=== PATIENT | female | born 1970 | race Caucasian/White ===

== ENCOUNTER → 2017-10-29 11:15 | Outpatient (REF) | payer MEDICAID, SELFPAY ==
--- NOTE | 2017-10-29 10:50 | PAPFT_PTH ---
PATIENT: Venessa Pascual LOC: [facility] U#:[id number] AGE/SX: 55/F ROOM: RE10/29/[address]: Atiya Ledesma NP : 1970 BED: DIS: SPEC #: [id number] RECD: 10/29/17 12:56 STATUS: DANYA ROSE #: [id number] SUBHA: 10/29/17 10:[address]: Atiya Ledesma NP DEPT: [facility] Cytology RECD BY: Ngoc Roe ENTERED: 10/29/17 12:56 SP TYPE: PAPFT OTHR DR: Jovanna Ellis Tissues: 1 - CX/ENDOCX FOR PAP SMEARS Procedures: PAP THIN PREP/UVM Screening HPV DNA PROBE Comments: [id number] (CHLAMYDIA GC)
[2017-11-01 15:26] LABS: Chlamydia Result Negative; GC Result Negative; Specimen Description SEE COMMENTS
== END ==
LOC: LBN 11:15
PROVIDERS: PCP Nurse Practitioner Family; Visit Provider Nurse Practitioner Women's Health
DX: Z11.3 Encounter for screening for infections with a predominantly sexual mode of transmission (principal); Z12.4 Encounter for screening for malignant neoplasm of cervix; Z11.51 Encounter for screening for human papillomavirus (HPV)
CPT/HCPCS: 87491; 87591; 88142; 87624

== ENCOUNTER → 2017-10-29 11:23 | Outpatient (CLI) | payer MEDICAID, SELFPAY ==
[2017-10-29 15:05] LABS: Glucose 107 mg/dL (70-100); Hemoglobin A1C 5.7 % (4.5-6.2); TSH (W/Ref FT4) 3.94 uIU/mL (0.358-3.74)
[2017-10-29 15:29] LABS: FREE T4 0.84 ng/dL (0.76-1.46)
[2017-10-29 15:58] LABS: Cholesterol 156 mg/dL (50-200); HDL Cholesterol 44 mg/dL (40-60); LDL CHOLESTEROL 97 mg/dL (<100); Triglyceride 120 mg/dL (30-150)
== END ==
PROVIDERS: PCP Nurse Practitioner Family; Visit Provider Nurse Practitioner Women's Health
DX: N93.9 Abnormal uterine and vaginal bleeding, unspecified (principal); R73.03 Prediabetes; Z13.220 Encounter for screening for lipoid disorders; Z11.3 Encounter for screening for infections with a predominantly sexual mode of transmission; Z12.4 Encounter for screening for malignant neoplasm of cervix; Z11.51 Encounter for screening for human papillomavirus (HPV)
CPT/HCPCS: 36415; 80061; 82947; 83721; 87491; 87591; 88142; 83036; 84439; 84443; 87624

== ENCOUNTER 2017-11-18 02:07 | Outpatient (CLI) | payer MEDICAID, SELFPAY ==
--- NOTE | 2017-11-18 12:59 | DI.US_ITS ---
SYMPTOMS/DIAGNOSIS: MENORRHAGIA, R92.0, PELVIC PLAIN, R10.2, RIGHT-SIDED PAIN, HEAVY BLEEDING, ? FIBROID PELVIC ULTRASOUND: There are no prior comparison exams. Transabdominal and transvaginal exams were performed. The uterus measures 10.8 x 4.7 x 6.6 cm. No fibroids are visualized. The endometrial stripe appears thickened at 16 mm. No focal endometrial abnormality is seen. The endometrium appears homogeneous. The ovaries are normal in size and appearance. No cysts or masses are seen. The kidneys are grossly normal. IMPRESSION: Mildly enlarged uterus without a discrete fibroid. Thickened endometrium without focal abnormality.
== END 2017-11-18 02:27 ==
PROVIDERS: PCP Family Medicine; Visit Provider Nurse Practitioner Women's Health
DX: N92.0 Excessive and frequent menstruation with regular cycle (principal); N85.2 Hypertrophy of uterus; R10.2 Pelvic and perineal pain; R93.8 Abnormal findings on diagnostic imaging of other specified body structures
CPT/HCPCS: 76830; 76856

== ENCOUNTER 2017-12-01 01:18 | Outpatient (CLI) | payer MEDICAID, SELFPAY ==
--- NOTE | 2017-12-01 12:57 | DI.MAMMO_ITS ---
SYMPTOMS/DIAGNOSIS: SCREENING, Z12.31 MAMMOGRAM: Mammograms were interpreted according to the usual protocol including computer analysis with CAD system, tomosynthesis and C view imaging. The breasts are of moderate density. There is a markedly asymmetric appearance of the breasts with vaguely mass-like/nodular large radiodensities in the upper outer quadrant of the right breast as compared to the left. These findings may represent asymmetric fibroglandular tissue or old scarring or hematoma, but the possibility of malignancy is not excluded. Additional evaluation with compression views of the right breast and right breast ultrasound recommended. Additionally, there is an incompletely visualized nodule projected in the medial portion of the left breast on CC view and spot compression views and breast ultrasound are recommended for further evaluation of this finding. CONCLUSION: Additional mammographic views of both breasts and bilateral breast ultrasounds requested as described above. Category 0, breast density category C. MQSA ASSESSMENT OF FINDINGS: Incomplete: Needs additional imaging evaluation. Category 0. Patient will receive a letter notifying them of these results. Bi-RADS category C. The breasts are heterogeneously dense, which may obscure small masses.
== END 2017-12-01 01:38 ==
PROVIDERS: PCP Family Medicine; Visit Provider Nurse Practitioner Women's Health
DX: Z12.31 Encounter for screening mammogram for malignant neoplasm of breast (principal); R92.8 Other abnormal and inconclusive findings on diagnostic imaging of breast
CPT/HCPCS: 77063; 77067

== ENCOUNTER 2017-12-02 14:42 | Outpatient (REF) | payer MEDICAID, SELFPAY ==
--- NOTE | 2017-12-02 13:30 | CER_PTH ---
PATIENT: Venessa Pascual LOC: [facility]BN U#:[id number] AGE/SX: 47/F ROOM: RE12/02/[address]: Bijan Kinney MD : 1970 BED: DIS: 12/02/2017 SPEC #: [id number] RECD: 12/02/17 17:56 STATUS: DANYA REQ #: [id number] SUBHA: 12/02/17 13:[address]: Bijan Kinney DEPT: Surgical Specimen RECD BY: Ngoc Roe ENTERED: 12/02/17 17:58 SP TYPE: CER OTHR DR: Jose Diehl Tissues: 1 - CERVICAL BIOPSY 2 - ENDOCERVICAL BX/CURRETTE 3 - ENDOMETRIUM BX/CURRETTE Procedures: GROSS AND MICRO LEVEL 4 Comments: [id number]
== END 2017-12-02 15:02 ==
LOC: LBN 14:42
PROVIDERS: PCP Family Medicine; Visit Provider Obstetrics & Gynecology
DX: N85.00 Endometrial hyperplasia, unspecified (principal); N88.8 Other specified noninflammatory disorders of cervix uteri; N92.0 Excessive and frequent menstruation with regular cycle
CPT/HCPCS: 88305

== ENCOUNTER 2017-12-15 01:00 | Outpatient (CLI) | payer MEDICAID, SELFPAY ==
--- NOTE | 2017-12-15 13:28 | DI.COMBO_ITS ---
SYMPTOMS/DIAGNOSIS: ADDITIONAL VIEWS OF THE LEFT BREAST AND LEFT BREAST ULTRASOUND: Additional images are interpreted according to the usual protocol including tomosynthesis and 2D imaging. Additional views of the left breast fail to show a persistent discrete mass. A left breast ultrasound was performed. The upper inner and upper outer quadrants of the left breast were evaluated in addition to the lower inner quadrants. No cystic or solid masses are seen sonographically. IMPRESSION: No evidence for malignancy. Yearly mammography is recommended. Category I. Breast density B. ADDITIONAL VIEWS OF THE RIGHT BREAST AND RIGHT BREAST ULTRASOUND: Additional images are interpreted according to the usual protocol including tomosynthesis and 2D imaging. Additional views of the right breast again show asymmetric densities in the upper outer quadrant of the right breast. No associated microcalcifications are seen. A right breast ultrasound was performed. The upper outer quadrant was evaluated sonographically. No definite cystic or solid mass is seen sonographically. There does appear to be dense breast tissue in the upper outer quadrant. IMPRESSION: A 3 month follow up right mammogram and ultrasound are requested for re-evaluation. This is the patient's baseline examination. Category 3. The findings were discussed with the patient on the date of the examination. MQSA ASSESSMENT OF FINDINGS: Probably benign. Three month follow up recommended. Category 3. Patient will receive a letter notifying them of these results. BI-RADS category B. There are scattered areas of fibroglandular density.
== END 2017-12-15 01:20 ==
PROVIDERS: PCP Family Medicine; Visit Provider Nurse Practitioner Women's Health
DX: Z12.31 Encounter for screening mammogram for malignant neoplasm of breast (principal); R92.8 Other abnormal and inconclusive findings on diagnostic imaging of breast; N60.81 Other benign mammary dysplasias of right breast
CPT/HCPCS: 76642; 77063; 77067

== ENCOUNTER 2017-12-30 13:27 | Outpatient (CLI) | payer MEDICAID, SELFPAY ==
[2017-12-30 15:27] LABS: FREE T4 0.79 ng/dL (0.76-1.46); TSH 4.87 uIU/mL (0.358-3.74)
[2017-12-31 10:44] LABS: FSH 11.6 mIU/ml; LH 20.3 mIU/ml
== END 2017-12-30 13:47 ==
PROVIDERS: PCP Family Medicine; Visit Provider Obstetrics & Gynecology
DX: E03.9 Hypothyroidism, unspecified (principal)
CPT/HCPCS: 36415; 83001; 83002; 84439; 84443

== ENCOUNTER 2018-03-14 13:02 | Outpatient (CLI) | payer MEDICAID, SELFPAY ==
[2018-03-14 14:00] LABS: HCT 37.2 % (36.0-46.0); HGB 12.1 g/dL (12.0-15.5); Mean Corp. HGB Concentration 32.5 g/dL (32.0-36.0); Mean Corpuscular Hemoglobin 28.7 pg (27.0-33.0); Mean Corpuscular Volume 88.4 fL (80-95); Mean Platelet Volume 9.5 fL (8.0-11.0); Platelet Count 338 x1000/uL (130-400); RBC 4.21 m/cumm (4.00-5.20); RBC Distribution Width 14.2 % (11.7-14.6); White Blood Cell Count 6.21 k/cumm (4.4-10.8)
[2018-03-14 14:39] LABS: TSH (W/Ref FT4) 1.88 uIU/mL (0.358-3.74)
[2018-03-14 14:50] LABS: HCG Quant, Pregnancy < 1 mIU/mL (1-3)
== END 2018-03-14 13:22 ==
PROVIDERS: Obstetrics & Gynecology; PCP Family Medicine; Visit Provider Nurse Practitioner Family
DX: E03.9 Hypothyroidism, unspecified (principal); N94.6 Dysmenorrhea, unspecified; N92.0 Excessive and frequent menstruation with regular cycle; Z01.818 Encounter for other preprocedural examination
CPT/HCPCS: 36415; 85027; 86850; 86900; 86901; 84443; 84702

== ENCOUNTER 2018-03-16 11:33 | Inpatient (IN) | payer MEDICAID, SELFPAY ==
[2018-03-16] VITALS (25 sets, daily range): BP systolic 81–132; BP diastolic 41–83; PULSE 59–79; RESP 14–24; TEMP 36.6–36.8; O2SAT 90–98
[2018-03-16] MEDS: Lactated Ringers 1,000 ML 125 ML IV ×5 (07:07→21:31)
--- NOTE | 2018-03-16 09:54 | UTER_PTH ---
PATIENT: Venessa Pascual LOC: U#:[id number] AGE/SX: 48/F ROOM: RE03/16/[address]: Emily Harvey MD : 1970 BED: A DIS: 03/17/2018 SPEC #: [id number] RECD: 03/16/18 12:58 STATUS: DANYA REQ #: [id number] SUBHA: 03/16/18 09:[address]: Emily Harvey DEPT: Surgical Specimen RECD BY: Ngoc Roe ENTERED: 03/16/18 12:59 SP TYPE: UTER OTHR DR: Jose Diehl Tissues: 1 - UTERUS W OR W/O OVARIES(NOT TUMOR/PROLAPSE) 2 - FALLOPIAN TUBE (OTHER) Procedures: GROSS AND MICRO LEVEL 5 Comments: [id number]
[2018-03-16] MEDS: Bupivacaine 0.25% Pres-Free 30 ML VIAL (11:01)
[2018-03-16] MEDS: Scopolamine 1 MG/3 DAYS PATCH TD (11:10)
[2018-03-16] MEDS: fentaNYL 100 MCG/2 ML VIAL IVP ×3 (12:24→13:00)
[2018-03-16] MEDS: oxyCODONE 5 mg/Acetaminophen 325 mg TAB PO ×4 (14:06→23:47)
--- NOTE | 2018-03-16 15:48 | NUR.NOTE ---
Nursing Note: 03/16/18 @ 1325 Admited from PACU to room 225 via stretcher. LS dim w few coarse rhonchi. States is a smoker and has a congested frequent cough at this time. Not raising any sputum at this time. Is enc to splint ABD incision for comfort. A&Ox3. 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 States pain is 8/10. ABD HYST incision is covered w nonstick dressing, CDI. Cameron to gravity w pink, hematuria, sediment urine in bag. Not emptied at this time. SCD's placed. Teaching for pain control and sipping on gingerale. Denies nausea. Will continue to monitor pain but was just medicated. Oriented to room and call escudero system. LR@125cc/hr into site WNL's. upper bed rails in use. Spouse present and comforting to patient. Patient able to repos self w assist. PP+. Limited feeling & movement in LE from spinal but able to wiggle toes and feet well.
[2018-03-16] MEDS: Ketorolac 30 MG/ML VIAL IVP ×2 (17:16→23:21)
[2018-03-16] MEDS: Normal Saline Flush 10 ML SYR IV ×2 (17:16→23:24)
--- NOTE | 2018-03-16 19:40 | ROE_ITS ---
DATE OF PROCEDURE: March 16, 2018 PREOPERATIVE DIAGNOSIS: Menorrhagia, pelvic pain. POSTOPERATIVE DIAGNOSIS: Menorrhagia, pelvic pain. PROCEDURE: Laparoscopic total hysterectomy, bilateral salpingectomy, converted to laparotomy, total abdominal hysterectomy, and bilateral salpingectomy. SURGEON: Emily Harvey M.D. CONSTRUCTION EQUIPMENT OVERHAULER: Carie Schreiber M.D. ANESTHESIA: General plus intrathecal. ESTIMATED BLOOD LOSS: 300 cc FLUIDS: Per Anesthesia records. FINDINGS: There were two adhesions of the omentum to the anterior abdominal wall and adhesion of the bladder to the lower uterine segment. There was a subserosal fibroid at the fundus of the uterus. Both ovaries were normal. SPECIMENS: Uterus, cervix, bilateral tubes. PROCEDURE: The patient was taken to the Operating Room where she was properly identified. She was t hen placed on the operating table in dorsal supine position and general anesthesia was induced withou t difficulty. She was then placed in the dorsal lithotomy position with both arms tucked and prepped and draped in a normal sterile fashion. A formal time-out procedure was then performed confirming p atient and procedure. A Cameron catheter was placed and then a bivalve speculum was placed in the vagina to visualize the cer vix. The cervix was visualized and grabbed on the anterior lip with a single-tooth tenaculum. A #0- PDS was stitched at the anterior lip of the cervix and held. The VCare was then advanced into the ut erine cavity. It had been sounded to 11 prior. The balloon was filled and the VCare caps were advan jean-claude circumferentially around the cervix and locked. Placement was reinspected and the cervix felt en tirely covered. Attention was then turned to the laparoscopic portion of the procedure. An infraumbilical injection of half-strength Marcaine was made. A 5-mm subcuticular infraumbilical incision was made. The Veres s was advanced into the peritoneal cavity without difficulty. The abdomen was then insufflated with CO2 gas. Once insufflated the 5-mm port was advanced under direct visualization after the Veress nee dle was removed. Two lower 5-mm ports were then placed, one in the right lower quadrant and one in t he left lower quadrant by first injecting the area with quarter-strength Marcaine, making a 5-mm subc uticular incision, and advancing the ports under direct visualization. A thorough inspection of the pelvis ensued with the above findings. After identification of the bilateral ureters along the course of the pelvic sidewall, the TLH was be gun at the left round ligament which was cauterized x3 and cut. The bladder flap was created both sh arply and bluntly across the anterior lower uterine segment. Attention was then turned to the right round ligament. Again, it was cauterized and cut. It was at this time that Anesthesia asked for the abdomen to be desufflated because the patient was not maintaining her oxygen saturation. She was gi charles albuterol and had some improvement back to baseline. However, once the abdomen was reinsufflated and Trendelenburg position was assumed, the patient again could not maintain her O2 saturations. An esthesia advised at the time that it would be best to do her case open because she was not tolerating the laparoscopic procedure. All the ports were removed and hemostasis was confirmed. The abdomen w as desufflated of CO2 gas. The patient was placed on the table in a dorsal supine position. She was reprepped and draped in a s terile fashion. A Pfannenstiel incision was made approximately 2 cm above the symphysis pubis along the old section scar and carried down to the underlying fascia. The fascia was nicked in th e midline and extended bilaterally sharply. The inferior aspect of the fascia was then grasped bilat erally with the Rafat clamps, tented up, and the rectus muscles dissected off sharply. Attention was then turned to the superior aspect. Again, in a similar fashion it was grasped bilater ally with the Rafat clamped, tented up, and the rectus muscles dissected off sharply. The rectus mu scles were in the midline. The peritoneum was entered bluntly. This was extended superior ly and then inferiorly with good visualization of the bladder. The bowel was packed away with four m oist laparotomy sponges. The O'Lukasz-O'Alarcon retractor was then placed. The bladder blade was p laced without difficulty and the upper arm was used to hold the packed laparotomy back with good visu alization. The cornua regions of the uterus were grasped bilaterally with long Annita clamps. Attention was then turned to the remainder of the dissection of the bladder which was taken down in a series of sharp and blunt dissection with the Metzenbaum scissors. Attention was then turned to the uterine ovarian ligament on the left. A small window was made in the broad ligament. The ligament was cross clamped x2 with Annita clamps, cut, suture ligated with #0 Vicryl, and then free tied x1 wit h #0 Vicryl. The tube remained attached to the uterus. The broad ligament was taken down by a serie s of straight Rafat clamps, cut, and suture ligated with #0 Vicryl to the level of the uterine vesse ls which were skeletonized and cross clamped. Using the scalpel, the tissue was taken down and stitc hed with #0 Vicryl. In a similar fashion on the right, a window was made in the broad ligament. It was cross clamped x2 and cut. The ovary was free tied x1 and suture ligated x1. There was some bleeding from the surface of the IP ligament which was made hemostatic with a series of #2-0 Vicryl in a running locked fashio n. Once hemostasis was confirmed on the right ovary, the remainder of the right broad ligament was t aken down with a series of clamping with straight Rafat clamps, cutting, and suture ligating with #0 Vicryl to the level of the uterine vessels which were skeletonized and then cross clamped perpendicu lar to the uterus, cut, and suture ligated with #0 Vicryl. The remainder of the paracervical tissue was taken down with clamping with straight Rafat clamps, incising with the scalpel, and suture ligat ing with #0 Vicryl. With the bladder well away from the surgical field, curved Tonya clamps were pl aced at the cervicovaginal junction and the uterus and cervix were excised using the Bret scisso rs. Two Tonya stitches of #0 Vicryl were then placed on each of the apices and held and the remaind er of the vaginal cuff was closed with #0 Vicryl in a normal running locked fashion. The abdomen was copiously irrigated. All of the irrigant was removed. All of the pedicles were insp ected and found to be hemostatic. The laparotomy sponges were then removed. The retractor was remov ed. The peritoneum was closed with #2-0 Vicryl in a running fashion. The muscle and subfascial laye r was inspected and found to be hemostatic. The fascia was closed from each of the apices with #0-PD S. The subcuticular tissue was copiously irrigated, requiring a small amount of Bovie cautery to ach ieve hemostasis. This was reapproximated using #3-0 plain gut and the skin was closed with #4-0 Vicr yl on a Tim needle in a subcuticular fashion. Sponge, lap, needle, and instrument counts were correct x2.
[2018-03-16] MEDS: traZODone 50 MG TAB PO (21:38)
[2018-03-17] VITALS (7 sets, daily range): BP systolic 109–114; BP diastolic 58–75; PULSE 66–73; RESP 14–20; TEMP 37.1–38.1; O2SAT 95–99
[2018-03-17] MEDS: oxyCODONE 5 mg/Acetaminophen 325 mg TAB PO ×4 (03:42→16:11)
[2018-03-17] MEDS: Lactated Ringers 1,000 ML 125 ML IV ×2 (04:45→12:31)
[2018-03-17] MEDS: Ketorolac 30 MG/ML VIAL IVP ×2 (06:14→12:27)
[2018-03-17] MEDS: Levothyroxine 50 MCG TAB PO (06:14)
[2018-03-17] MEDS: Sertraline 50 MG TAB PO (07:45)
--- NOTE | 2018-03-17 13:11 | PGE_ITS ---
Date of Service Date of service: 03/17/18 Time of Service: 08:06 Assessment and Plan (1) Dysmenorrhea: Current visit: Yes Status: Acute pod #1 RAJ Bilateral salpingectomy stable reseen at 12 noon ready to D/C Subjective Patient reports: tolerating a regular diet, voiding w/o difficulty, flatus and afebrile Interval history since last seen: doing well feels well pain well controlled using percocet Exam Narrative Exam Narrative: pod#1 RAJ Const General: cooperative and healthy appearing Resp Effort & Inspection: normal respiratory effort Auscultation: clear to auscultation bilaterally Cardio Rate: regular rate Rhythm: regular rhythm GI Inspection: normal to inspection Other: incision C/D/I Objective Objective Clinical Data: Vital Signs Temperature 38.1 C H 03/17/18 07:40 Temperature Source Tympanic 03/17/18 07:40 Pulse 66 03/17/18 07:40 Pulse Rhythm Regular 03/17/18 07:35 Respiratory Rate 18 03/17/18 07:40 Respiratory Effort Non-Labored 03/17/18 07:35 Respiratory Depth Normal 03/17/18 07:35 Respiratory Pattern Normal 03/17/18 07:35 Blood Pressure 109/74 03/17/18 07:40 Pulse Oximetry 99 03/17/18 07:40 Respiratory End-tidal CO2 33 03/16/18 12:40 Oxygen Delivery Method Room Air 03/17/18 07:40 Oxygen Flow Rate 0 03/17/18 07:40 Pain Level 5 03/17/18 12:27 Intake & Output 03/16/18 03/17/18 03/17/18 23:59 11:59 23:59 Intake Total 3045.416 / 4595.416 2040 / 3010.833 970.833 / 3010.833 Output Total 1300 / 1750 1800 / 1800 Balance 1745.416 / 2845.416 240 / 1210.833 970.833 / 1210.833 Intake: IV 2235.416 / 3785.416 960 / 1930.833 970.833 / 1930.833 Oral 810 / 810 1080 / 1080 Output: Urine 1300 / 1450 1800 / 1800 Other: Urine Color Light Dalila Yellow Brown [place] Urine Appearance Clear Clear Urine Odor Normal Comment Not emptied at thsi time Emesis Description None Voiding Methods Toilet Toilet
--- NOTE | 2018-03-17 15:04 | W.PM.DS.N ---
Date of service: 03/17/18 Time of Service: 15:05 DS: Diagnosis Discharge Diagnosis (1) Dysmenorrhea: Status: Acute Discharge Plan Disposition Patient Disposition: HOME Condition: Stable Discharge Details Reason For Visit: MENORRHAGIA S/P RAJ Admit Date/Time: 03/16/18 11:33 Admit Provider: Emily Harvey Attending Provider: Emily Harvey [facility] Hospital Course: OR 03/16/18 Laparoscopy converted to Laparotomy RAJ Bilateral salpingectomy routine post op course d/c home POD #1 Home Meds and New Rx's Prescriptions: New trazodone 50 mg Tablet 50 mg PO HS PRN PRN (Reason: Allergy Symptoms) Qty: 30 RF: 0 acetaminophen [Mapap Extra Strength] 500 mg Tablet 500 mg PO Q4H PRN PRNQty: 30 RF: 0 oxycodone-acetaminophen 5-325 mg Tablet 1 tab PO Q4H PRN PRNQty: 10 RF: 0 levothyroxine 50 mcg Tablet 50 mcg PO DAILY@0600 Qty: 30 RF: 0 sertraline 50 mg Tablet 50 mg PO DAILY Qty: 30 RF: 0 Continued trazodone 50 mg tablet 50 mg PO HS RF: 0 levothyroxine [Levoxyl] 50 mcg tablet 50 mcg PO DAILY Qty: 60 RF: 1 sertraline 50 mg Tablet 50 mg PO DAILY RF: 0 Discharge Instructions Instructions: Menorrhagia (GEN) Additional Instructions: Postoperative Instructions Outpatient Gynecology - Dr. George PLEASE LIMIT YOUR ACTIVITY Limit stair climbing for your first week at home. You may increase your activity and stair climbing after that, gradually, as tolerated. YOU MAY Shower and wash your hair at any time and tub baths with assistance. If you have an abdominal incision, you may also wash your incision with warm water and soap, dry well. You may also use peroxide to clean your incision. AFTER YOUR FIRST WEEK AT HOME You may do light housekeeping, leave the house, and ride in a car. You may drive a car yourself for short trips after (2) weeks. To help with your recovery, you should resume daily activities as soon as you feel able. You will probably be able to return to work 4-6 weeks after your surgery. AVOID Vigorous exercise or heavy lifting for (6) six weeks after your surgery. Please abstain from intercourse, douching, and using tampons for (4) four weeks or until your physician indicates that this is acceptable. YOU MAY HAVE Some vaginal bleeding and/or discharge for (2) two to (3) three weeks after your surgery. Use pads only. Please contact the office if you have any sudden, heavy vaginal bleeding. TO AVOID CONSTIPATION You may use over the counter products, for example; Metamucil, Fibercon, Colace, or Milk of Magnesia. Also, eat a well balanced, high fiber diet and drink plenty of liquids. You may also use a girdle or abdominal support, if you wish for comfort, but it is not required. CALL THE OFFICE If you have any signs of infection, such as; a temperature greater than 100.4F, general ill feelings, redness or discharge at the site of the incision, or foul smelling vaginal discharge. If you experience any new symptoms, such as; nausea, vomiting, abdominal swelling, or severe pain. As soon as you are able to, schedule a follow-up appointment for (4) four to (6) six weeks from surgery. Please make the appointments with the physician that performed your surgery. MEDICATIONS You may use ibuprofen 600 mg every (6) six hours for pain- Advil, Motrin IB, and Ibuprofen that you buy without a prescription are the same medicine as prescribed Motrin or Ibuprofen. The kind you buy without prescription are 200mg so you may take 3 of these at a time if you did not receive a prescription for Ibuprofen. Please call the office with any questions or concerns at [phone]. Stand Alone Forms: Nursing Discharge Form Referrals: Emily Harvey [ [facility] STAFF PHYSICIAN] - 04/05/18 10:00 am Activity:: Activity as Tolerated Equipment/Supplies:: No Equipment Needed Diet:: As Tolerated Discharge Orders Discharge Orders: Discharge Order (Routine); Ordered 03/17/18 Ordered By: Emily Harvey DS: Summary Time spent discussing smoking cessation with patient: more than 10 minutes Exam Chest Chest: normal inspection of the chest Resp Effort & Inspection: normal respiratory effort Cardio Palpation: normal PMI Rate: regular rate Rhythm: regular rhythm GI Inspection: normal to inspection Other: incision c/d/i DS: Data Vitals/I&O Vitals and I&O: Vital Signs Temperature 37.9 C H 03/17/18 13:25 Temperature Source Tympanic 03/17/18 13:25 Pulse 73 03/17/18 13:25 Pulse Rhythm Regular 03/17/18 07:35 Respiratory Rate 18 03/17/18 13:25 Respiratory Effort Non-Labored 03/17/18 07:35 Respiratory Depth Normal 03/17/18 07:35 Respiratory Pattern Normal 03/17/18 07:35 Blood Pressure 114/69 03/17/18 13:25 Pulse Oximetry 95 03/17/18 13:25 Respiratory End-tidal CO2 33 03/16/18 12:40 Oxygen Delivery Method Room Air 03/17/18 13:25 Oxygen Flow Rate 0 03/17/18 13:25 Pain Level 5 03/17/18 12:27 Intake & Output 03/16/18 03/17/18 03/17/18 23:59 11:59 23:59 Intake Total 3045.416 / 4595.416 2040 / 4089.583 2049.583 / 4089.583 Output Total 1300 / 1750 1800 / 1800 Balance 1745.416 / 2845.416 240 / 2289.583 2049.583 / 2289.583 Intake: IV 2235.416 / 3785.416 960 / 2049.583 1089.583 / 2049.583 Oral 810 / 810 1080 / 2040 960 / 2040 Output: Urine 1300 / 1450 1800 / 1800 Other: Urine Color Light Dalila Yellow Brown [place] Urine Appearance Clear Clear Urine Odor Normal Comment Not emptied at thsi time Emesis Description None Voiding Methods Toilet Toilet [facility] Medical History 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) Atypical squamous cells of undetermined significance (ASCUS) on Papanicolaou smear of cervix (Acute 11/21/14) Depression Dysmenorrhea Menorrhagia Pre-diabetes Surgical History section Ligation of fallopian tube Tonsillectomy and adenoidectomy Family History Mother CHF (congestive heart failure) COPD (chronic obstructive pulmonary disease) Father Essential hypertension Sister PCOS (polycystic ovarian syndrome) Ovarian cancer Grandfather Essential hypertension Grandfather COPD (chronic obstructive pulmonary disease) Grandmother Cervical cancer Social History Smoking/Tobacco Use Status: Current every day alcohol intake: former substance use type: does not use History History 2 Para Hx # Term Pregnancies Multiple births Hx # Pregnancies Ectopic pregnancies AB induced Hx Number of Living Children AB spontaneous
--- NOTE | 2018-03-17 15:08 | DSE_ITS ---
Date of service: 03/17/18 Time of Service: 15:05 DS: Diagnosis Discharge Diagnosis (1) Dysmenorrhea: Status: Acute Discharge Plan Disposition Patient Disposition: HOME Condition: Stable Discharge Details Reason For Visit: MENORRHAGIA S/P RAJ Admit Date/Time: 03/16/18 11:33 Admit Provider: Emily Harvey Attending Provider: Emily Harvey [facility] Hospital Course: OR 03/16/18 Laparoscopy converted to Laparotomy RAJ Bilateral salpingectomy routine post op course d/c home POD #1 Home Meds and New Rx's Prescriptions: New trazodone 50 mg Tablet 50 mg PO HS PRN PRN (Reason: Allergy Symptoms) Qty: 30 RF: 0 acetaminophen [Mapap Extra Strength] 500 mg Tablet 500 mg PO Q4H PRN PRNQty: 30 RF: 0 oxycodone-acetaminophen 5-325 mg Tablet 1 tab PO Q4H PRN PRNQty: 10 RF: 0 levothyroxine 50 mcg Tablet 50 mcg PO DAILY@0600 Qty: 30 RF: 0 sertraline 50 mg Tablet 50 mg PO DAILY Qty: 30 RF: 0 Continued trazodone 50 mg tablet 50 mg PO HS RF: 0 levothyroxine [Levoxyl] 50 mcg tablet 50 mcg PO DAILY Qty: 60 RF: 1 sertraline 50 mg Tablet 50 mg PO DAILY RF: 0 Discharge Instructions Instructions: Menorrhagia (GEN) Additional Instructions: Postoperative Instructions Outpatient Gynecology - Dr. George PLEASE LIMIT YOUR ACTIVITY * Limit stair climbing for your first week at home. * You may increase your activity and stair climbing after that, gradually, as tolerated. YOU MAY * Shower and wash your hair at any time and tub baths with assistance. * If you have an abdominal incision, you may also wash your incision with warm water and soap, dry well. You may also use peroxide to clean your incision. AFTER YOUR FIRST WEEK AT HOME * You may do light housekeeping, leave the house, and ride in a car. * You may drive a car yourself for short trips after (2) weeks. * To help with your recovery, you should resume daily activities as soon as you feel able. * You will probably be able to return to work 4-6 weeks after your surgery. AVOID * Vigorous exercise or heavy lifting for (6) six weeks after your surgery. * Please abstain from intercourse, douching, and using tampons for (4) four weeks or until your physician indicates that this is acceptable. YOU MAY HAVE * Some vaginal bleeding and/or discharge for (2) two to (3) three weeks after your surgery. * Use pads only. * Please contact the office if you have any sudden, heavy vaginal bleeding. TO AVOID CONSTIPATION * You may use over the counter products, for example; Metamucil, Fibercon, Colace, or Milk of Magnesia. * Also, eat a well balanced, high fiber diet and drink plenty of liquids. * You may also use a girdle or abdominal support, if you wish for comfort, but it is not required. CALL THE OFFICE * If you have any signs of infection, such as; a temperature greater than 100.4F, general ill feelings, redness or discharge at the site of the incision, or foul smelling vaginal discharge. * If you experience any new symptoms, such as; nausea, vomiting, abdominal swelling, or severe pain. * As soon as you are able to, schedule a follow-up appointment for (4) four to (6) six weeks from surgery. * Please make the appointments with the physician that performed your surgery. MEDICATIONS * You may use ibuprofen 600 mg every (6) six hours for pain- Advil, Motrin IB, and Ibuprofen that you buy without a prescription are the same medicine as prescribed Motrin or Ibuprofen. The kind you buy without prescription are 200mg so you may take 3 of these at a time if you did not receive a prescription for Ibuprofen. Please call the office with any questions or concerns at [phone]. Stand Alone Forms: Nursing Discharge Form Referrals: Emily Harvey [ [facility] STAFF PHYSICIAN] - 04/05/18 10:00 am Activity:: Activity as Tolerated Equipment/Supplies:: No Equipment Needed Diet:: As Tolerated Discharge Orders Discharge Orders: Discharge Order (Routine); Ordered 03/17/18 Ordered By: Emily Harvey DS: Summary Time spent discussing smoking cessation with patient: more than 10 minutes Exam Chest Chest: normal inspection of the chest Resp Effort & Inspection: normal respiratory effort Cardio Palpation: normal PMI Rate: regular rate Rhythm: regular rhythm GI Inspection: normal to inspection Other: incision c/d/i DS: Data Vitals/I&O Vitals and I&O: Vital Signs Temperature 37.9 C H 03/17/18 13:25 Temperature Source Tympanic 03/17/18 13:25 Pulse 73 03/17/18 13:25 Pulse Rhythm Regular 03/17/18 07:35 Respiratory Rate 18 03/17/18 13:25 Respiratory Effort Non-Labored 03/17/18 07:35 Respiratory Depth Normal 03/17/18 07:35 Respiratory Pattern Normal 03/17/18 07:35 Blood Pressure 114/69 03/17/18 13:25 Pulse Oximetry 95 03/17/18 13:25 Respiratory End-tidal CO2 33 03/16/18 12:40 Oxygen Delivery Method Room Air 03/17/18 13:25 Oxygen Flow Rate 0 03/17/18 13:25 Pain Level 5 03/17/18 12:27 Intake & Output 03/16/18 03/17/18 03/17/18 23:59 11:59 23:59 Intake Total 3045.416 / 4595.416 2040 / 4089.583 2049.583 / 4089.583 Output Total 1300 / 1750 1800 / 1800 Balance 1745.416 / 2845.416 240 / 2289.583 2049.583 / 2289.583 Intake: IV 2235.416 / 3785.416 960 / 2049.583 1089.583 / 2049.583 Oral 810 / 810 1080 / 2040 960 / 2040 Output: Urine 1300 / 1450 1800 / 1800 Other: Urine Color Light Dalila Yellow Brown [place] Urine Appearance Clear Clear Urine Odor Normal Comment Not emptied at thsi time Emesis Description None Voiding Methods Toilet Toilet [facility] Medical History 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) Atypical squamous cells of undetermined significance (ASCUS) on Papanicolaou smear of cervix (Acute 11/21/14) Depression Dysmenorrhea Menorrhagia Pre-diabetes Surgical History section Ligation of fallopian tube Tonsillectomy and adenoidectomy Family History Mother CHF (congestive heart failure) COPD (chronic obstructive pulmonary disease) Father Essential hypertension Sister PCOS (polycystic ovarian syndrome) Ovarian cancer Grandfather Essential hypertension Grandfather COPD (chronic obstructive pulmonary disease) Grandmother Cervical cancer Social History Smoking/Tobacco Use Status: Current every day alcohol intake: former substance use type: does not use History History 2 Para Hx # Term Pregnancies Multiple births Hx # Pregnancies Ectopic pregnancies AB induced Hx Number of Living Children AB spontaneous
--- NOTE | 2018-03-17 15:13 | W.PM.DS.N ---
DS: Diagnosis Discharge Diagnosis (1) Dysmenorrhea: Status: Acute Discharge Plan Disposition Patient Disposition: HOME Condition: Stable Discharge Details Reason For Visit: MENORRHAGIA S/P RAJ Admit Date/Time: 03/16/18 11:33 Admit Provider: Emily Harvey Attending Provider: Emily Harvey [facility]: [facility] 03/16/18 Laparoscopy converted to Laparotomy RAJ Bilateral salpingectomy routine post op course d/c home POD #1 Home Meds and New Rx's Prescriptions: New trazodone 50 mg Tablet 50 mg PO HS PRN PRN (Reason: Allergy Symptoms) Qty: 30 RF: 0 acetaminophen [Mapap Extra Strength] 500 mg Tablet 500 mg PO Q4H PRN PRNQty: 30 RF: 0 oxycodone-acetaminophen 5-325 mg Tablet 1 tab PO Q4H PRN PRNQty: 10 RF: 0 levothyroxine 50 mcg Tablet 50 mcg PO DAILY@0600 Qty: 30 RF: 0 sertraline 50 mg Tablet 50 mg PO DAILY Qty: 30 RF: 0 Continued trazodone 50 mg tablet 50 mg PO HS RF: 0 levothyroxine [Levoxyl] 50 mcg tablet 50 mcg PO DAILY Qty: 60 RF: 1 sertraline 50 mg Tablet 50 mg PO DAILY RF: 0 Discharge Instructions Instructions: Menorrhagia (GEN) Additional Instructions: Postoperative Instructions Outpatient Gynecology - Dr. George PLEASE LIMIT YOUR ACTIVITY Limit stair climbing for your first week at home. You may increase your activity and stair climbing after that, gradually, as tolerated. YOU MAY Shower and wash your hair at any time and tub baths with assistance. If you have an abdominal incision, you may also wash your incision with warm water and soap, dry well. You may also use peroxide to clean your incision. AFTER YOUR FIRST WEEK AT HOME You may do light housekeeping, leave the house, and ride in a car. You may drive a car yourself for short trips after (2) weeks. To help with your recovery, you should resume daily activities as soon as you feel able. You will probably be able to return to work 4-6 weeks after your surgery. AVOID Vigorous exercise or heavy lifting for (6) six weeks after your surgery. Please abstain from intercourse, douching, and using tampons for (4) four weeks or until your physician indicates that this is acceptable. YOU MAY HAVE Some vaginal bleeding and/or discharge for (2) two to (3) three weeks after your surgery. Use pads only. Please contact the office if you have any sudden, heavy vaginal bleeding. TO AVOID CONSTIPATION You may use over the counter products, for example; Metamucil, Fibercon, Colace, or Milk of Magnesia. Also, eat a well balanced, high fiber diet and drink plenty of liquids. You may also use a girdle or abdominal support, if you wish for comfort, but it is not required. CALL THE OFFICE If you have any signs of infection, such as; a temperature greater than 100.4F, general ill feelings, redness or discharge at the site of the incision, or foul smelling vaginal discharge. If you experience any new symptoms, such as; nausea, vomiting, abdominal swelling, or severe pain. As soon as you are able to, schedule a follow-up appointment for (4) four to (6) six weeks from surgery. Please make the appointments with the physician that performed your surgery. MEDICATIONS You may use ibuprofen 600 mg every (6) six hours for pain- Advil, Motrin IB, and Ibuprofen that you buy without a prescription are the same medicine as prescribed Motrin or Ibuprofen. The kind you buy without prescription are 200mg so you may take 3 of these at a time if you did not receive a prescription for Ibuprofen. Please call the office with any questions or concerns at [phone]. Stand Alone Forms: Nursing Discharge Form Referrals: Emily Harvey [ [facility] STAFF PHYSICIAN] - 04/05/18 10:00 am Activity:: Activity as Tolerated Equipment/Supplies:: No Equipment Needed Diet:: As Tolerated Discharge Orders Discharge Orders: Discharge Order (Routine); Ordered 03/17/18 Ordered By: Emily Harvey DS: Data Vitals/I&O Vitals and I&O: Vital Signs Temperature 37.9 C H 03/17/18 13:25 Temperature Source Tympanic 03/17/18 13:25 Pulse 73 03/17/18 13:25 Pulse Rhythm Regular 03/17/18 07:35 Respiratory Rate 18 03/17/18 13:25 Respiratory Effort Non-Labored 03/17/18 07:35 Respiratory Depth Normal 03/17/18 07:35 Respiratory Pattern Normal 03/17/18 07:35 Blood Pressure 114/69 03/17/18 13:25 Pulse Oximetry 95 03/17/18 13:25 Respiratory End-tidal CO2 33 03/16/18 12:40 Oxygen Delivery Method Room Air 03/17/18 13:25 Oxygen Flow Rate 0 03/17/18 13:25 Pain Level 5 03/17/18 12:27 Intake & Output 03/16/18 03/17/18 03/17/18 23:59 11:59 23:59 Intake Total 3045.416 / 4595.416 2040 / 4089.583 2049.583 / 4089.583 Output Total 1300 / 1750 1800 / 1800 Balance 1745.416 / 2845.416 240 / 2289.583 2049.583 / 2289.583 Intake: IV 2235.416 / 3785.416 960 / 2049.583 1089.583 / 2049.583 Oral 810 / 810 1080 / 2040 960 / 2040 Output: Urine 1300 / 1450 1800 / 1800 Other: Urine Color Light Dalila Yellow Brown [place] Urine Appearance Clear Clear Urine Odor Normal Comment Not emptied at thsi time Emesis Description None Voiding Methods Toilet Toilet [facility] Medical History 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) Atypical squamous cells of undetermined significance (ASCUS) on Papanicolaou smear of cervix (Acute 11/21/14) Depression Dysmenorrhea Menorrhagia Pre-diabetes Surgical History section Ligation of fallopian tube Tonsillectomy and adenoidectomy Family History Mother CHF (congestive heart failure) COPD (chronic obstructive pulmonary disease) Father Essential hypertension Sister PCOS (polycystic ovarian syndrome) Ovarian cancer Grandfather Essential hypertension Grandfather COPD (chronic obstructive pulmonary disease) Grandmother Cervical cancer Social History Smoking/Tobacco Use Status: Current every day alcohol intake: former substance use type: does not use History History 2 Para Hx # Term Pregnancies Multiple births Hx # Pregnancies Ectopic pregnancies AB induced Hx Number of Living Children AB spontaneous
--- NOTE | 2018-03-17 15:16 | DSE_ITS ---
DS: Diagnosis Discharge Diagnosis (1) Dysmenorrhea: Status: Acute Discharge Plan Disposition Patient Disposition: HOME Condition: Stable Discharge Details Reason For Visit: MENORRHAGIA S/P RAJ Admit Date/Time: 03/16/18 11:33 Admit Provider: Emily Harvey Attending Provider: Emily Harvey [facility] Course: OR 03/16/18 Laparoscopy converted to Laparotomy RAJ Bilateral salpingectomy routine post op course d/c home POD #1 Home Meds and New Rx's Prescriptions: New trazodone 50 mg Tablet 50 mg PO HS PRN PRN (Reason: Allergy Symptoms) Qty: 30 RF: 0 acetaminophen [Mapap Extra Strength] 500 mg Tablet 500 mg PO Q4H PRN PRNQty: 30 RF: 0 oxycodone-acetaminophen 5-325 mg Tablet 1 tab PO Q4H PRN PRNQty: 10 RF: 0 levothyroxine 50 mcg Tablet 50 mcg PO DAILY@0600 Qty: 30 RF: 0 sertraline 50 mg Tablet 50 mg PO DAILY Qty: 30 RF: 0 Continued trazodone 50 mg tablet 50 mg PO HS RF: 0 levothyroxine [Levoxyl] 50 mcg tablet 50 mcg PO DAILY Qty: 60 RF: 1 sertraline 50 mg Tablet 50 mg PO DAILY RF: 0 Discharge Instructions Instructions: Menorrhagia (GEN) Additional Instructions: Postoperative Instructions Outpatient Gynecology - Dr. George PLEASE LIMIT YOUR ACTIVITY * Limit stair climbing for your first week at home. * You may increase your activity and stair climbing after that, gradually, as tolerated. YOU MAY * Shower and wash your hair at any time and tub baths with assistance. * If you have an abdominal incision, you may also wash your incision with warm water and soap, dry well. You may also use peroxide to clean your incision. AFTER YOUR FIRST WEEK AT HOME * You may do light housekeeping, leave the house, and ride in a car. * You may drive a car yourself for short trips after (2) weeks. * To help with your recovery, you should resume daily activities as soon as you feel able. * You will probably be able to return to work 4-6 weeks after your surgery. AVOID * Vigorous exercise or heavy lifting for (6) six weeks after your surgery. * Please abstain from intercourse, douching, and using tampons for (4) four weeks or until your physician indicates that this is acceptable. YOU MAY HAVE * Some vaginal bleeding and/or discharge for (2) two to (3) three weeks after your surgery. * Use pads only. * Please contact the office if you have any sudden, heavy vaginal bleeding. TO AVOID CONSTIPATION * You may use over the counter products, for example; Metamucil, Fibercon, Colace, or Milk of Magnesia. * Also, eat a well balanced, high fiber diet and drink plenty of liquids. * You may also use a girdle or abdominal support, if you wish for comfort, but it is not required. CALL THE OFFICE * If you have any signs of infection, such as; a temperature greater than 100.4F, general ill feelings, redness or discharge at the site of the incision, or foul smelling vaginal discharge. * If you experience any new symptoms, such as; nausea, vomiting, abdominal swelling, or severe pain. * As soon as you are able to, schedule a follow-up appointment for (4) four to (6) six weeks from surgery. * Please make the appointments with the physician that performed your surgery. MEDICATIONS * You may use ibuprofen 600 mg every (6) six hours for pain- Advil, Motrin IB, and Ibuprofen that you buy without a prescription are the same medicine as prescribed Motrin or Ibuprofen. The kind you buy without prescription are 200mg so you may take 3 of these at a time if you did not receive a prescription for Ibuprofen. Please call the office with any questions or concerns at [phone]. Stand Alone Forms: Nursing Discharge Form Referrals: Emily Harvey [ [facility] STAFF PHYSICIAN] - 04/05/18 10:00 am Activity:: Activity as Tolerated Equipment/Supplies:: No Equipment Needed Diet:: As Tolerated Discharge Orders Discharge Orders: Discharge Order (Routine); Ordered 03/17/18 Ordered By: Emily Harvey DS: Data Vitals/I&O Vitals and I&O: Vital Signs Temperature 37.9 C H 03/17/18 13:25 Temperature Source Tympanic 03/17/18 13:25 Pulse 73 03/17/18 13:25 Pulse Rhythm Regular 03/17/18 07:35 Respiratory Rate 18 03/17/18 13:25 Respiratory Effort Non-Labored 03/17/18 07:35 Respiratory Depth Normal 03/17/18 07:35 Respiratory Pattern Normal 03/17/18 07:35 Blood Pressure 114/69 03/17/18 13:25 Pulse Oximetry 95 03/17/18 13:25 Respiratory End-tidal CO2 33 03/16/18 12:40 Oxygen Delivery Method Room Air 03/17/18 13:25 Oxygen Flow Rate 0 03/17/18 13:25 Pain Level 5 03/17/18 12:27 Intake & Output 03/16/18 03/17/18 03/17/18 23:59 11:59 23:59 Intake Total 3045.416 / 4595.416 2040 / 4089.583 2049.583 / 4089.583 Output Total 1300 / 1750 1800 / 1800 Balance 1745.416 / 2845.416 240 / 2289.583 2049.583 / 2289.583 Intake: IV 2235.416 / 3785.416 960 / 2049.583 1089.583 / 2049.583 Oral 810 / 810 1080 / 2040 960 / 2040 Output: Urine 1300 / 1450 1800 / 1800 Other: Urine Color Light Dalila Yellow [place] Urine Appearance Clear Clear Urine Odor Normal Comment Not emptied at thsi time Emesis Description None Voiding Methods Toilet Toilet [facility] Medical History 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) Atypical squamous cells of undetermined significance (ASCUS) on Papanicolaou smear of cervix (Acute 11/21/14) Depression Dysmenorrhea Menorrhagia Pre-diabetes Surgical History section Ligation of fallopian tube Tonsillectomy and adenoidectomy Family History Mother CHF (congestive heart failure) COPD (chronic obstructive pulmonary disease) Father Essential hypertension Sister PCOS (polycystic ovarian syndrome) Ovarian cancer Grandfather Essential hypertension Grandfather COPD (chronic obstructive pulmonary disease) Grandmother Cervical cancer Social History Smoking/Tobacco Use Status: Current every day alcohol intake: former substance use type: does not use History History 2 Para Hx # Term Pregnancies Multiple births Hx # Pregnancies Ectopic pregnancies AB induced Hx Number of Living Children AB spontaneous
--- NOTE | 2018-03-17 17:12 | INITIAL_ITS ---
Care Management Initial Assess REASON FOR HOSPITALIZATION:: Menorrhagia S/P RAJ PAST MEDICAL HISTORY/PAST SURGICAL HISTORY:: ASCUS, Depression, Dysmenorrhea, high risk HPV infection, Menorrhagia, pre-diabetes, section, ligation of fallopian tube, tonsillectomy and adenoidectomy PREVIOUS FUNCTIONAL STATUS/SOCIAL/FAMILY SUPPORTS:: Venessa resides in [place] with her significant other, Denny and her fourteen year old daughter. 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 CURRENT FUNCTIONAL STATUS:: Venessa is lying in bed when meets with her. Her significant other was at her bedside. She is forthcoming with information and pleasant in interaction. ADVANCE DIRECTIVES:: None on file. Has patient been provided with information about the portal?: Yes Did the patient sign up for the portal?: No CODE STATUS:: Full Code INSURANCE COVERAGE / FINANCIAL ISSUES:: Medicaid CURRENT HOME/COMMUNITY SERVICES/EQUIPMENT:: No current services or equipment. PRIMARY CARE PHYSICIAN:: Jose Diehl MD. POTENTIAL DISCHARGE NEEDS:: Follow up appointment with PCP. PATIENT/FAMILY EDUCATION NEEDS:: Review discharge instructions; discuss Ask Me Three. ANTICIPATED BARRIERS TO DISCHARGE:: None identified. TRANSPORTATION:: Venessa will transport via private vehicle with her significant other, Denny. PLAN:: Venessa will return home when ready per . She will follow up with Dr. Harvey and her plan of care as prescribed. Venessa will transport via private vehicle with her significant other, Denny.
--- NOTE | 2018-03-17 17:12 | PDOC.CMDIS ---
LACE Index Scoring Tool - Questions: Length of Stay (in days): 2 Acuity (Admit via E.D.?): No E.D. Visits: 0 - Answers: Total Score: 2 Risk of Readmission: Low Risk Care Management Discharge Reason for Hospitalization: Menorrhagia S/P RAJ Discharge Plan: Venessa will return home when ready per MD. She will follow up with Dr. Harvey and her plan of care as prescribed. Venessa will transport via private vehicle with her significant other, Denny. Patient/Family Education Needs: Review discharge instructions, discuss Ask Me Three.
== END 2018-03-17 16:11 | disposition home or self-care (01) | DRG 743 ==
LOC: MS 13:11
PROVIDERS: Admitting Provider Obstetrics & Gynecology; PCP Family Medicine; Visit Provider Obstetrics & Gynecology
PROC: 0UT94ZZ Resection of Uterus, Percutaneous Endoscopic Approach (ICD-10-PCS; CPT 58150; principal; 2018-03-16 07:30)
PROC: 0UT90ZZ Resection of Uterus, Open Approach (ICD-10-PCS; CPT 58150; 2018-03-16 07:30)
DX: N92.0 Excessive and frequent menstruation with regular cycle (principal); R10.2 Pelvic and perineal pain; N84.1 Polyp of cervix uteri; N70.11 Chronic salpingitis; D25.2 Subserosal leiomyoma of uterus; Z53.31 Laparoscopic surgical procedure converted to open procedure; R09.02 Hypoxemia; E03.9 Hypothyroidism, unspecified; F32.9 Major depressive disorder, single episode, unspecified
CPT/HCPCS: 58150; 99239; NC; 88307; J0690; J1100; J1885; J2250; J2405; J3010

== ENCOUNTER 2018-03-28 15:18 | Emergency (ER) | payer MEDICAID, SELFPAY ==
[2018-03-28 15:20] VITALS: BP 149/80; PULSE 86; RESP 14; TEMP 37; O2SAT 98
[2018-03-28 15:47] LABS: Bilirubin Negative (Negative); Blood Small (Negative); Clarity Clear; Glucose Negative (Negative); Ketones Negative (Negative); Leukocyte Esterase Trace (Negative); Nitrite Negative (Negative); Specific Gravity 1.015 (1.005-1.025); Urobilinogen 0.2 EU/dL (Up TO 0.2)
[2018-03-28] MEDS: Normal Saline 1,000 ML 1000 ML IV (16:08)
--- NOTE | 2018-03-28 16:08 | W.ED.GENAD ---
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 Clinical Impression: Colitis, Hepatic lesion, Pelvic pain Primary Care Provider: Jose Diehl ED Provider: Enrike Apple Home Meds and New Rx's Prescriptions: New metronidazole [Flagyl] 500 mg tablet 500 mg PO TID Qty: 21 RF: 0 ciprofloxacin HCl [Cipro] 500 mg tablet 500 mg PO BID Qty: 14 RF: 0 acetaminophen [Mapap Extra Strength] 500 MG tablet 1,000 mg PO Q6H 5 Days Qty: 60 RF: 0 ibuprofen [Motrin IB] 200 MG tablet 600 mg PO Q6H 5 Days Qty: 60 RF: 0 No Action trazodone 50 mg tablet 50 mg PO HS RF: 0 ibuprofen 600 mg tablet 600 mg PO QID PRN (Reason: pain) Qty: 45 RF: 1 levothyroxine [Levoxyl] 50 mcg tablet 50 mcg PO DAILY Qty: 60 RF: 1 ibuprofen 800 mg tablet 800 mg PO QID PRN (Reason: pain) Qty: 30 RF: 1 acetaminophen-codeine [Tylenol-Codeine #3] 300-30 mg tablet 1 tab PO Q6H PRN (Reason: pain) Qty: 20 RF: 0 amoxicillin-pot clavulanate [Augmentin] 875-125 mg tablet 1 tab PO BID 10 Days Qty: 20 RF: 0 sertraline 50 mg Tablet 50 mg PO DAILY RF: 0 acetaminophen [Mapap Extra Strength] 500 mg Tablet 500 mg PO Q4H PRN PRNQty: 30 RF: 0 Discharge Instructions Instructions: Colitis (ED) Additional Instructions: Please take Tylenol and Motrin for pain. I prescribed the maximum doses. Please take the Cipro and Flagyl as directed for the infection. If you notice any tendon or ligament pain please take stop taking the Cipro immediately. Do not drink any alcohol with the Flagyl. Please follow-up tomorrow with your obstetrics cobbler mckay. You do have a liver lesion noted on the CT scan. This needs to be closely followed with your primary care provider. If you notice any worsening of your symptoms, or any new symptoms such as vomiting, diarrhea, fever, chills, shortness of breath, chest pain, numbness, weakness, or fainting , please return immediately to the emergency department for reevaluation. Please follow up with your primary care provider as soon as possible for reassessment and reevaluation. As always, it was a pleasure participating in your medical care today. Referrals: Jose Diehl [Primary Care Provider] - Medical Decision Making This is a 48-year-old female who had a hysterectomy [address] Harvey the obstetrics cobbler mckay. Since then she has noticed continued pain in her pelvic region. She denies any vaginal discharge. She does have pain with urination and defecation. She denies any current fevers or chills but did have a mild fever 3 days ago. She did take 2 days of antibiotics/Augmentin but stopped this because it caused some diarrhea. Diarrhea has since improved. Physical exam demonstrates a mildly tender lower pelvic region, an incision site that is clean dry and intact except for slight opening on the left lateral component, questionable small seroma beneath the skin. We will get a CT scan per the request of the obstetrics cobbler mckay, perform a laboratory workup, treat the patient's pain and rehydrate. 6:[address] scan results have returned and demonstrate evidence of a few different findings including the very small 3 cm fluid collection in the postsurgical region, as well as a slightly enlarged left ovary, and some inflammatory changes in the anterior pelvis most likely postoperative changes. However the patient also demonstrates evidence of colitis on the CT scan. Although the patient did have diarrhea her diarrhea has completely resolved at this point, and she states that she only has formed stool. I doubt Clostridium difficile. If it is a C. difficile infection it is certainly very mild at this time. We will treat the patient with Cipro and Flagyl for suspected bacterial colitis. I did review the entire case, and the imaging and laboratory findings with Dr. Harvey the obstetrics cobbler mckay. She has no additional recommendations at this time except she does want close follow-up this week with the patient. The patient's pain is well controlled, vital signs are reassuring, the remainder of her laboratory workup is otherwise benign. Feel that the patient is a good candidate for discharge home and with no clinical symptomatology or CT findings of a severe acute abdominal pathology requiring surgery or hospitalization feel she can be discharged. I have extensively reviewed the treatment plan and discharge instructions with the patient and their family. I have addressed all patient concerns at this time. The patient and family was made aware of what symptoms to monitor for that would warrant a return to the emergency department. Discussed the plan with the patient and family, they demonstrate verbal understanding and agreement with our assessment and plan at this time. FINDINGS: Lower thorax: No acute findings. ABDOMEN: Liver: 8 mm low-attenuation nodule in the liver 45 Hounsfield units. Gallbladder and bile ducts: Normal. No calcified stones. No ductal dilation. Pancreas: Normal. No ductal dilation. Spleen: Normal. No splenomegaly. Adrenals: Normal. No mass. Kidneys and ureters: Normal. No hydronephrosis. Stomach and bowel: Low-attenuation bowel wall thickening is seen throughout the colon consistent with colitis. Differential diagnosis includes infectious and inflammatory etiologies.. Appendix: Normal appendix PELVIS: Bladder: Unremarkable as visualized. Reproductive: 2.6 cm cystic structure in the anterior left hemipelvis 14 Hounsfield units. This most likely represents left ovarian cyst if the ovaries were not resected with the uterus. Differential includes small abscess, hematoma, or seroma. ABDOMEN and PELVIS: Intraperitoneal space: Mild amount of free fluid in the pelvis Bones/joints: No acute fracture. No dislocation. Soft tissues: Anterior pelvic wall thickening 2.4 cm consistent with edema. 3 x 1 cm fluid collection in the subcutaneous fat anterior to the pelvis (4:65) Differential includes abscess, hematoma, seroma.. Inflammatory changes in the subcutaneous fat anterior to the pelvis may be secondary to recent surgery.. Inflammatory changes in the subcutaneous fat anteriorly in the abdomen consistent with recent surgery. Vasculature: Normal. No abdominal aortic aneurysm. Lymph nodes: Normal. No enlarged lymph nodes. IMPRESSION: 1. Anterior pelvic wall thickening 2.4 cm consistent with edema. 2. 3 x 1 cm fluid collection in the subcutaneous fat anterior to the pelvis (4:65) Differential includes abscess, hematoma, seroma.. 3. Inflammatory changes in the subcutaneous fat anterior to the pelvis may be secondary to recent surgery.. 4. Low-attenuation bowel wall thickening is seen throughout the colon consistent with colitis. Differential diagnosis includes infectious and inflammatory etiologies.. 5. 2.6 cm cystic structure in the anterior left hemipelvis 14 Hounsfield units. This most likely represents left ovarian cyst if the ovaries were not resected with the uterus. Differential includes small abscess, hematoma, or seroma. 6. Inflammatory changes in the subcutaneous fat anteriorly in the abdomen consistent with recent surgery. 7. 8 mm low-attenuation nodule in the liver 45 Hounsfield units. For low risk patients, recommend follow up CT or MRI in 6 months. For average risk patients, recommend multiphasic MRI in 6 months. For high risk patients, recommend multiphasic MRI and consider biopsy (core preferred). THIS REPORT CONTAINS FINDINGS THAT MAY BE CRITICAL TO PATIENT CARE. The findings were verbally communicated via telephone conference with ENRIKE APPLE at 5:29 PM EST on 03/28/2018. The findings were acknowledged and understood. Dictated and Authenticated by: Phuc Tolbert MD. HPI General Date/Time Provider Initiated Documentation: 03/28/18 15:25. HPI Narrative: This is a 48-year-old female with a past medical history of a hysterectomy performed by Dr. Harvey 12 days ago. Procedure went well, however since then she has had continued pain. 4 days ago she was started on Augmentin however this gave her diarrhea so she only took it for 2 days total. 3 days ago she had a mild fever of 100.1, but has had no fever since then. She has noticed some mild swelling beneath the incision site of her hysterectomy, but denies any drainage. Because of her continued pain, which is made worse with urination and defecation, she contacted her obstetrics cobbler mckay Dr. Harvey who recommended that she come in here for further evaluation and CT scan. Patient's pain is also made worse with movement. It is improved by nothing. She denies any associated symptoms of chills, chest pain, shortness of breath, numbness, tingling, weakness, vaginal discharge, dysuria, hematuria, hematochezia, melena, acholic stool. She has no other complaints at this time. She denies any IV or illicit drug use. She denies any pertinent family history Related Data Home Medications Medication Instructions Recorded Confirmed trazodone 50 mg tablet 50 mg PO HS 12/27/17 03/25/18 levothyroxine 50 mcg tablet 50 mcg PO DAILY #60 tab 03/02/18 03/25/18 sertraline 50 mg PO DAILY 03/11/18 03/25/18 acetaminophen [Mapap Extra 500 mg PO Q4H PRN PRN #30 tab 03/17/18 03/25/18 Strength] ibuprofen 600 mg tablet 600 mg PO QID PRN #45 tab 03/19/18 03/25/18 acetaminophen 300 mg-codeine 30 mg 1 tab PO Q6H PRN #20 tab 03/25/18 03/25/18 tablet amoxicillin 875 mg-potassium 1 tab PO BID 10 Days #20 tab 03/25/18 03/25/18 clavulanate 125 mg tablet ibuprofen 800 mg tablet 800 mg PO QID PRN #30 tab 03/25/18 03/25/18 acetaminophen [Mapap Extra 1,000 mg PO Q6H 5 Days #60 tab 03/28/18 Strength] ciprofloxacin HCl [Cipro] 500 mg PO BID #14 tab 03/28/18 ibuprofen [Motrin Ib] 600 mg PO Q6H 5 Days #60 tab 03/28/18 metronidazole [Flagyl] 500 mg PO TID #21 tab 03/28/18 Previous Rx's Medication Instructions Recorded levothyroxine 50 mcg tablet 50 mcg PO DAILY #60 tab 03/02/18 acetaminophen [Mapap Extra 500 mg PO Q4H PRN PRN #30 tab 03/17/18 Strength] ibuprofen 600 mg tablet 600 mg PO QID PRN #45 tab 03/19/18 acetaminophen 300 mg-codeine 30 mg 1 tab PO Q6H PRN #20 tab 03/25/18 tablet amoxicillin 875 mg-potassium 1 tab PO BID 10 Days #20 tab 03/25/18 clavulanate 125 mg tablet ibuprofen 800 mg tablet 800 mg PO QID PRN #30 tab 03/25/18 acetaminophen [Mapap Extra 1,000 mg PO Q6H 5 Days #60 tab 03/28/18 Strength] ciprofloxacin HCl [Cipro] 500 mg PO BID #14 tab 03/28/18 ibuprofen [Motrin Ib] 600 mg PO Q6H 5 Days #60 tab 03/28/18 metronidazole [Flagyl] 500 mg PO TID #21 tab 03/28/18 Allergies Allergy/AdvReac Type Severity Reaction Status Date / Time No Known Allergies Allergy Unverified 03/25/18 13:53 General 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: 3 Review of Systems Review of Systems All systems reviewed & are unremarkable except as noted in HPI and below PFSH Medical History 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) Atypical squamous cells of undetermined significance (ASCUS) on Papanicolaou smear of cervix (Acute 11/21/14) Depression Dysmenorrhea Menorrhagia Pre-diabetes Surgical History H/O abdominal hysterectomy (Acute) section Ligation of fallopian tube Tonsillectomy and adenoidectomy Family History Mother CHF (congestive heart failure) COPD (chronic obstructive pulmonary disease) Father Essential hypertension Sister PCOS (polycystic ovarian syndrome) Ovarian cancer Grandfather Essential hypertension Grandfather COPD (chronic obstructive pulmonary disease) Grandmother Cervical cancer Social History Smoking/Tobacco Use Status: Current every day alcohol intake: former substance use type: does not use History History 2 Para Hx # Term Pregnancies Multiple births Hx # Pregnancies Ectopic pregnancies AB induced Hx Number of Living Children AB spontaneous Exam Narrative Exam Narrative: 1.Const: Well-nourished, Well-developed, appearing stated age 2.Eyes: PERRL, no conjunctival injection, and symmetrical lids. 3.ENT: Atraumatic external nose and ears. Moist MM. Neck: Symmetric, trachea midline, No thyromegaly. 4.CVS: +S1/S2, No murmurs or gallops. Peripheral pulses 2+ and equal in all extremities. Brisk capillary refill in all extremities. 5.RESP: Unlabored respiratory effort. Clear to auscultation bilaterally. No wheezes rales or rhonchi 6.GI: Soft, Nondistended, No hepatosplenomegaly. No guarding or rebound. Patient's abdominal incision site demonstrates a clean dry and intact incision site for slight opening on the left lateral aspect. No drainage. No evidence of significant abdominal tenderness however she does have notable pelvic tenderness on palpation. No evidence of vaginal discharge at this time. No significant CVA tenderness. The port sites from the procedure do appear clean dry and intact and healing well. No other significant abnormalities 7.MSK: Normocephalic/Atraumatic, Extremities w/o deformity or ttp No cyanosis or clubbing, Normal movement of all extremities 8.Skin: Warm, Dry. No rashes or lesions. 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 Sensation grossly intact, no focal neurologic deficits. 10.Psych: (AAO) x3. Appropriate mood and affect Course Vital Signs Temperature 37.0 C 03/28/18 15:20 Pulse 86 03/28/18 15:20 Respiratory Rate 14 03/28/18 15:20 Blood Pressure 149/80 H 03/28/18 15:20 Pulse Oximetry 98 03/28/18 15:20 Temperature 37.0 C 01/14/19 15:20 Temperature Source Skin 03/28/18 15:20 Pulse 86 03/28/18 15:20 Respiratory Rate 14 03/28/18 15:20 Blood Pressure 149/80 H 03/28/18 15:20 Blood Pressure Position Sitting 03/28/18 15:20 Pulse Oximetry 98 03/28/18 15:20 Oxygen Delivery Method Room Air 03/28/18 15:20 Oxygen Flow Rate 0 03/28/18 15:20 Pain Level 6 03/28/18 15:20 Lab/Test Results Lab/Test Results: Laboratory Tests Range/Units 03/28/18 15:27 Urine Color (Yellow) Yellow Urine Clarity Clear Urine pH (5-8) 6.0 Ur Specific [place] (1.005-1.025) 1.015 Urine Protein (Negative) mg/dL Negative Urine Ketones (Negative) mg/dL Negative Urine Blood (Negative) Small H Urine Nitrite (Negative) Negative Urine Bilirubin (Negative) Negative Urine Urobilinogen (Up TO 0.2) EU/dL 0.2 Ur Leukocyte Esterase (Negative) Trace H Urine Glucose (Negative) mg/dL Negative
[2018-03-28 16:09] LABS: Bacteria Rare HPF (Negative); C & S Indicated? Yes; Casts Negative LPF (Negative); Crystals Negative HPF (Negative); Epithelial Cells Few HPF (Negative); Mucus Negative (Negative)
[2018-03-28] MEDS: Acetaminophen 500 MG TAB 1000 MG PO (16:09)
[2018-03-28] MEDS: Ketorolac 30 MG/ML VIAL 15 MG IVP (16:09)
[2018-03-28 16:13] LABS: Abs Immature Grans 0.02 k/cumm (0.0-0.09); Absolute Basophil Count 0.02 k/cumm (0.0-0.2); Absolute Eosinophil Count 0.04 k/cumm (0.0-0.7); Absolute Lymphocyte Count 1.99 k/cumm (1.2-3.4); Absolute Monocyte Count 0.55 k/cumm (0.11-0.7); Absolute Neutrophil Count 7.23 k/cumm (1.2-6.7); Basophils % 0.2; Eosinophils % 0.4; HCT 32.2 % (36.0-46.0); HGB 10.4 g/dL (12.0-15.5); Immature Grans % 0.2; Lymphocytes % 20.2; Mean Corp. HGB Concentration 32.3 g/dL (32.0-36.0); Mean Corpuscular Hemoglobin 28.5 pg (27.0-33.0); Mean Corpuscular Volume 88.2 fL (80-95); Mean Platelet Volume 9.1 fL (8.0-11.0); Monocytes % 5.6; Neutrophils % 73.4; Platelet Count 419 x1000/uL (130-400); RBC 3.65 m/cumm (4.00-5.20); RBC Distribution Width 14.2 % (11.7-14.6); White Blood Cell Count 9.85 k/cumm (4.4-10.8)
--- NOTE | 2018-03-28 16:47 | ED.GENADUL_ITS ---
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 Details Chief Complaint: BAND SHOVER Clinical Impression: Colitis, Hepatic lesion, Pelvic pain Primary Care Provider: Jose Diehl ED Provider: Enrike Apple Home Meds and New Rx's Prescriptions: New metronidazole [Flagyl] 500 mg tablet 500 mg PO TID Qty: 21 RF: 0 ciprofloxacin HCl [Cipro] 500 mg tablet 500 mg PO BID Qty: 14 RF: 0 acetaminophen [Mapap Extra Strength] 500 MG tablet 1,000 mg PO Q6H 5 Days Qty: 60 RF: 0 ibuprofen [Motrin IB] 200 MG tablet 600 mg PO Q6H 5 Days Qty: 60 RF: 0 No Action trazodone 50 mg tablet 50 mg PO HS RF: 0 ibuprofen 600 mg tablet 600 mg PO QID PRN (Reason: pain) Qty: 45 RF: 1 levothyroxine [Levoxyl] 50 mcg tablet 50 mcg PO DAILY Qty: 60 RF: 1 ibuprofen 800 mg tablet 800 mg PO QID PRN (Reason: pain) Qty: 30 RF: 1 acetaminophen-codeine [Tylenol-Codeine #3] 300-30 mg tablet 1 tab PO Q6H PRN (Reason: pain) Qty: 20 RF: 0 amoxicillin-pot clavulanate [Augmentin] 875-125 mg tablet 1 tab PO BID 10 Days Qty: 20 RF: 0 sertraline 50 mg Tablet 50 mg PO DAILY RF: 0 acetaminophen [Mapap Extra Strength] 500 mg Tablet 500 mg PO Q4H PRN PRNQty: 30 RF: 0 Discharge Instructions Instructions: Colitis (ED) Additional Instructions: Please take Tylenol and Motrin for pain. I prescribed the maximum doses. Please take the Cipro and Flagyl as directed for the infection. If you notice any tendon or ligament pain please take stop taking the Cipro immediately. Do not drink any alcohol with the Flagyl. Please follow-up tomorrow with your obstetrics material man. You do have a liver lesion noted on the CT scan. This needs to be closely followed with your primary care provider. If you notice any worsening of your symptoms, or any new symptoms such as vomiting, diarrhea, fever, chills, shortness of breath, chest pain, numbness, weakness, or fainting , please return immediately to the emergency department for reevaluation. Please follow up with your primary care provider as soon as possible for reassessment and reevaluation. As always, it was a pleasure participating in your medical car e today. Referrals: Jose Diehl [Primary Care Provider] - Medical Decision Making This is a 48-year-old female who had a hysterectomy [address] Harvey the obstetrics material man. Since then she has noticed continued pain in her pelvic region. She denies any vaginal discharge. She does have pain with urination and defecation. She denies any current fevers or chills but did have a mild fever 3 days ago. She did take 2 days of antibiotics/Augmentin but stopped this because it caused some diarrhea. Diarrhea has since improved. Physical exam demonstrates a mildly tender lower pelvic region, an incision site that is clean dry and intact except for slight opening on the left lateral component, questionable small seroma beneath the skin. We will get a CT scan per the request of the obstetrics material man, perform a laboratory workup, treat the patient's pain and rehydrate. 6:[address] scan results have returned and demonstrate evidence of a few different findings including the very small 3 cm fluid collection in the postsurgical region, as well as a slightly enlarged left ovary, and some inflammatory changes in the anterior pelvis most likely postoperative changes. However the patient also demonstrates evidence of colitis on the CT scan. Although the patient did have diarrhea her diarrhea has completely resolved at this point, and she states that she only has formed stool. I doubt Clostridium difficile. If it is a C. difficile infection it is certainly very mild at this time. We will treat the patient with Cipro and Flagyl for suspected bacterial colitis. I did review the entire case, and the imaging and laboratory findings with Dr. Harvey the obstetrics material man. She has no additional recommendations at this time except she does want close follow-up this week with the patient. The patient's pain is well controlled, vital signs are reassuring, the remainder of her laboratory workup is otherwise benign. Feel that the patient is a good candidate for discharge home and with no clinical symptomatology or CT findings of a severe acute abdominal pathology requiring surgery or hospitalization feel she can be discharged. I have extensively reviewed the treatment plan and discharge instructions with the patient and their family. I have addressed all patient concerns at this time. The patient and family was made aware of what symptoms to monitor for that would warrant a return to the emergency department. Discussed the plan with the patient and family, they demonstrate verbal u nderstanding and agreement with our assessment and plan at this time. FINDINGS: Lower thorax: No acute findings. ABDOMEN: Liver: 8 mm low-attenuation nodule in the liver 45 Hounsfield units. Gallbladder and bile ducts: Normal. No calcified stones. No ductal dilation. Pancreas: Normal. No ductal dilation. Spleen: Normal. No splenomegaly. Adrenals: Normal. No mass. Kidneys and ureters: Normal. No hydronephrosis. Stomach and bowel: Low-attenuation bowel wall thickening is seen throughout the colon consistent with colitis. Differential diagnosis includes infectious and inflammatory etiologies.. Appendix: Normal appendix PELVIS: Bladder: Unremarkable as visualized. Reproductive: 2.6 cm cystic structure in the anterior left hemipelvis 14 Hounsfield units. This most likely represents left ovarian cyst if the ovaries were not resected with the uterus. Differential includes small abscess, hematoma, or seroma. ABDOMEN and PELVIS: Intraperitoneal space: Mild amount of free fluid in the pelvis Bones/joints: No acute fracture. No dislocation. Soft tissues: Anterior pelvic wall thickening 2.4 cm consistent with edema. 3 x 1 cm fluid collection in the subcutaneous fat anterior to the pelvis (4:65) Differential includes abscess, hematoma, seroma.. Inflammatory changes in the subcutaneous fat anterior to the pelvis may be secondary to recent surgery.. Inflammatory changes in the subcutaneous fat anteriorly in the abdomen consistent with recent surgery. Vasculature: Normal. No abdominal aortic aneurysm. Lymph nodes: Normal. No enlarged lymph nodes. IMPRESSION: 1. Anterior pelvic wall thickening 2.4 cm consistent with edema. 2. 3 x 1 cm fluid collection in the subcutaneous fat anterior to the pelvis (4:65) Differential includes abscess, hematoma, seroma.. 3. Inflammatory changes in the subcutaneous fat anterior to the pelvis may be secondary to recent surgery.. 4. Low-attenuation bowel wall thickening is seen throughout the colon consistent with colitis. Differential diagnosis includes infectious and inflammatory etiologies.. 5. 2.6 cm cystic structure in the anterior left hemipelvis 14 Hounsfield units. This most likely represents left ovarian cyst if the ovaries were not resected with the uterus. Differential includes small abscess, hematoma, or seroma. 6. Inflammatory changes in the subcutaneous fat anteriorly in the abdomen consistent with recent surgery. 7. 8 mm low-attenuation nodule in the liver 45 Hounsfield units. For low risk patients, recommend follow up CT or MRI in 6 months. For average risk patients, recommend multiphasic MRI in 6 months. For high risk patients, recommend multiphasic MRI and consider biopsy (core preferred). THIS REPORT CONTAINS FINDINGS THAT MAY BE CRITICAL TO PATIENT CARE. The findings were verbally communicated via telephone conference with ENRIKE APPLE at 5:29 PM EST on 03/28/2018. The findings were acknowledged and understood. Dictated and Authenticated by: Phuc Tolbert MD. HPI General Date/Time Provider Initiated Documentation: 03/28/18 15:25 . HPI Narrative: This is a 48-year-old female with a past medical history of a hysterectomy performed by Dr. Harvey 12 days ago. Procedure went well, however since then she has had continued pain. 4 days ago she was started on Augmentin however this gave her diarrhea so she only took it for 2 days total. 3 days ago she had a mild fever of 100.1, but has had no fever since then. She has noticed some mild swelling beneath the incision site of her hysterectomy, but denies any drainage. Because of her continued pain, which is made worse with urination and defecation, she contacted her obstetrics material man Dr. Harvey who recommended that she come in here for further evaluation and CT scan. Patient's pain is also made worse with movement. It is improved by nothing. She denies any associated symptoms of chills, chest pain, shortness of breath, numbness, tingling, weakness, vaginal discharge, dysuria, hematuria, hematochezia, melena, acholic stool. She has no other complaints at this time. She denies any IV or illicit drug use. She denies any pertinent family history Related Data Home Medications Medication Instructions Recorded Confirmed trazodone 50 mg tablet 50 mg PO HS 12/27/17 03/25/18 levothyroxine 50 mcg tablet 50 mcg PO DAILY #60 tab 03/02/18 03/25/18 sertraline 50 mg PO DAILY 03/11/18 03/25/18 acetaminophen [Mapap Extra 500 mg PO Q4H PRN PRN #30 tab 03/17/18 03/25/18 Strength] ibuprofen 600 mg tablet 600 mg PO QID PRN #45 tab 03/19/18 03/25/18 acetaminophen 300 mg-codeine 30 mg 1 tab PO Q6H PRN #20 tab 03/25/18 03/25/18 tablet amoxicillin 875 mg-potassium 1 tab PO BID 10 Days #20 tab 03/25/18 03/25/18 clavulanate 125 mg tablet ibuprofen 800 mg tablet 800 mg PO QID PRN #30 tab 03/25/18 03/25/18 acetaminophen [Mapap Extra 1,000 mg PO Q6H 5 Days #60 tab 03/28/18 Strength] ciprofloxacin HCl [Cipro] 500 mg PO BID #14 tab 03/28/18 ibuprofen [Motrin Ib] 600 mg PO Q6H 5 Days #60 tab 03/28/18 metronidazole [Flagyl] 500 mg PO TID #21 tab 03/28/18 Previous Rx's Medication Instructions Recorded levothyroxine 50 mcg tablet 50 mcg PO DAILY #60 tab 03/02/18 acetaminophen [Mapap Extra 500 mg PO Q4H PRN PRN #30 tab 03/17/18 Strength] ibuprofen 600 mg tablet 600 mg PO QID PRN #45 tab 03/19/18 acetaminophen 300 mg-codeine 30 mg 1 tab PO Q6H PRN #20 tab 03/25/18 tablet amoxicillin 875 mg-potassium 1 tab PO BID 10 Days #20 tab 03/25/18 clavulanate 125 mg tablet ibuprofen 800 mg tablet 800 mg PO QID PRN #30 tab 03/25/18 acetaminophen [Mapap Extra 1,000 mg PO Q6H 5 Days #60 tab 03/28/18 Strength] ciprofloxacin HCl [Cipro] 500 mg PO BID #14 tab 03/28/18 ibuprofen [Motrin Ib] 600 mg PO Q6H 5 Days #60 tab 03/28/18 metronidazole [Flagyl] 500 mg PO TID #21 tab 03/28/18 Allergies Allergy/AdvReac Type Severity Reaction Status Date / Time No Known Allergies Allergy Unverified 03/25/18 13:53 General Stated Complaint: BAND SHOVER PAU: 3 Review of Systems Review of Systems All systems reviewed & are unremarkable except as noted in HPI and below PFSH Medical History 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) Atypical squamous cells of undetermined significance (ASCUS) on Papanicolaou smear of cervix (Acute 11/21/14) Depression Dysmenorrhea Menorrhagia Pre-diabetes Surgical History H/O abdominal hysterectomy (Acute) section Ligation of fallopian tube Tonsillectomy and adenoidectomy Family History Mother CHF (congestive heart failure) COPD (chronic obstructive pulmonary disease) Father Essential hypertension Sister PCOS (polycystic ovarian syndrome) Ovarian cancer Grandfather Essential hypertension Grandfather COPD (chronic obstructive pulmonary disease) Grandmother Cervical cancer Social History Smoking/Tobacco Use Status: Current every day alcohol intake: former substance use type: does not use History History 2 Para Hx # Term Pregnancies Multiple births Hx # Pregnancies Ectopic pregnancies AB induced Hx Number of Living Children AB spontaneous Exam Narrative Exam Narrative: 1.Const: Well-nourished, Well-developed, appearing stated age 2.Eyes: PERRL, no conjunctival injection, and symmetrical lids. 3.ENT: Atraumatic external nose and ears. Moist MM. Neck: Symmetric, trachea midline, No thyromegaly. 4.CVS: +S1/S2, No murmurs or gallops. Peripheral pulses 2+ and equal in all ex tremities. Brisk capillary refill in all extremities. 5.RESP: Unlabored respiratory effort. Clear to auscultation bilaterally. No wheezes rales or rhonchi 6.GI: Soft, Nondistended, No hepatosplenomegaly. No guarding or rebound. Patient's abdominal incision site demonstrates a clean dry and intact incision site for slight opening on the left lateral aspect. No drainage. No evidence of significant abdominal tenderness however she does have notable pelvic tenderness on palpation. No evidence of vaginal discharge at this time. No significant CVA tenderness. The port sites from the procedure do appear clean dry and intact and healing well. No other significant abnormalities 7.MSK: Normocephalic/Atraumatic, Extremities w/o deformity or ttp No cyanosis or clubbing, Normal movement of all extremities 8.Skin: Warm, Dry. No rashes or lesions. 9.Neuro: monotype caster II-XII grossly intact. Sensation grossly intact, no focal neurologic deficits. 10.Psych: (AAO) x3. Appropriate mood and affect Course Vital Signs Temperature 37.0 C 03/28/18 15:20 Pulse 86 03/28/18 15:20 Respiratory Rate 14 03/28/18 15:20 Blood Pressure 149/80 H 03/28/18 15:20 Pulse Oximetry 98 03/28/18 15:20 Temperature 37.0 C 03/28/18 15:20 Temperature Source Skin 03/28/18 15:20 Pulse 86 03/28/18 15:20 Respiratory Rate 14 03/28/18 15:20 Blood Pressure 149/80 H 03/28/18 15:20 Blood Pressure Position Sitting 03/28/18 15:20 Pulse Oximetry 98 03/28/18 15:20 Oxygen Delivery Method Room Air 03/28/18 15:20 Oxygen Flow Rate 0 03/28/18 15:20 Pain Level 6 03/28/18 15:20 Lab/Test Results Lab/Test Results: Laboratory Tests Range/Units 03/28/18 15:27 Urine Color (Yellow) Yellow Urine Clarity Clear Urine pH (5-8) 6.0 Ur Specific [place] (1.005-1.025) 1.015 Urine Protein (Negative) mg/dL Negative Urine Ketones (Negative) mg/dL Negative Urine Blood (Negative) Small H Urine Nitrite (Negative) Negative Urine Bilirubin (Negative) Negative Urine Urobilinogen (Up TO 0.2) EU/dL 0.2 Ur Leukocyte Esterase (Negative) Trace H Urine Glucose (Negative) mg/dL Negative
[2018-03-28 17:00] LABS: ALT 13 U/L (12-78); AST 8 U/L (15-37); Albumin 3.2 g/dL (3.4-5.0); Alkaline Phosphatase 49 U/L (46-116); Anion Gap 8.4 mmol/L (3-11); BUN 10 mg/dL (7-18); Bilirubin, Total 0.2 mg/dL (0.2-1.0); CO2 25.6 mmol/L (21.0-32.0); CREATININE 0.86 mg/dL (0.55-1.02); Calcium 8.4 mg/dL (8.5-10.1); Chloride 104 mmol/L (98-107); Glucose 71 mg/dL (70-100); Lipase 109 U/L (73-393); Potassium 3.6 mmol/L (3.5-5.1); Sodium 138 mmol/L (136-145); Total Protein 7.2 g/dL (6.4-8.2)
--- NOTE | 2018-03-28 17:02 | DI.CT_ITS ---
SYMPTOM/DIAGNOSIS: PAIN S/P HYSTERECTOMY ABDOMEN AND PELVIC CT: There are no prior comparison exams. The patient is status post hysterectomy 12 days ago. The lung bases are clear. The liver, gallbladder, spleen, pancreas, kidneys and adrenals are unremarkable. Multiple diverticula are noted along the descending and sigmoid colon. There is no gross evidence of diverticulitis. There is some stranding in the subcutaneous fat in the lower midline consistent with previous surgery. No drainable fluid collection or abscess is seen. A small cyst is seen on the left ovary. There is a small amount of stranding in the lower pelvis posterior to the bladder, likely post surgical. There is no drainable abscess or fluid collection. The bladder shows mild diffuse wall thickening. IMPRESSION: Post surgical changes of the anterior abdominal wall and post hysterectomy changes in the pelvis. There is some thickening of the bladder wall which is nonspecific and could be reactive secondary to recent surgery. Cystitis could also be considered.
[2018-03-28] MEDS: Omnipaque 350 MG/ML 100 ML BTL IJ (17:08)
[2018-03-28] MEDS: Normal Saline Flush 10 ML SYR IVP (17:09)
[2018-03-28 17:17] VITALS: BP 126/68; PULSE 67; RESP 16; TEMP 37; O2SAT 98
--- NOTE | 2018-03-28 17:30 | DI.VRAD_ITS ---
EXAM: CT Abdomen and Pelvis With Contrast EXAM DATE/TIME: 03/28/2018 3:27 PM CLINICAL HISTORY: 48 years old, female; Signs and symptoms; Other: Post op hysto, pain; Prior surgery; Surgery date: <1 month; Surgery type: S/P partial hysterectomy 12 days ago. Uterus and cervix removed TECHNIQUE: Axial computed tomography images of the abdomen and pelvis with intravenous contrast. All CT scans at this facility use at least one of these dose optimization techniques: automated exposure control; mA and/or kV adjustment per patient size (includes targeted exams where dose is matched to clinical indication); or iterative reconstruction. Coronal and sagittal reformatted images were created and reviewed. CONTRAST: 100 ml of Omnipaque 350 administered intravenously. COMPARISON: US PELVIS TRANSVAGINAL 11/18/2017 8:24 PM FINDINGS: Lower thorax: No acute findings. ABDOMEN: Liver: 8 mm low-attenuation nodule in the liver 45 Hounsfield units. Gallbladder and bile ducts: Normal. No calcified stones. No ductal dilation. Pancreas: Normal. No ductal dilation. Spleen: Normal. No splenomegaly. Adrenals: Normal. No mass. Kidneys and ureters: Normal. No hydronephrosis. Stomach and bowel: Low-attenuation bowel wall thickening is seen throughout the colon consistent with colitis. Differential diagnosis includes infectious and inflammatory etiologies.. Appendix: Normal appendix PELVIS: Bladder: Unremarkable as visualized. Reproductive: 2.6 cm cystic structure in the anterior left hemipelvis 14 Hounsfield units. This most likely represents left ovarian cyst if the ovaries were not resected with the uterus. Differential includes small abscess, hematoma, or seroma. ABDOMEN and PELVIS: Intraperitoneal space: Mild amount of free fluid in the pelvis Bones/joints: No acute fracture. No dislocation. Soft tissues: Anterior pelvic wall thickening 2.4 cm consistent with edema. 3 x 1 cm fluid collection in the subcutaneous fat anterior to the pelvis (4:65) Differential includes abscess, hematoma, seroma.. Inflammatory changes in the subcutaneous fat anterior to the pelvis may be secondary to recent surgery.. Inflammatory changes in the subcutaneous fat anteriorly in the abdomen consistent with recent surgery. Vasculature: Normal. No abdominal aortic aneurysm. Lymph nodes: Normal. No enlarged lymph nodes. IMPRESSION: 1. Anterior pelvic wall thickening 2.4 cm consistent with edema. 2. 3 x 1 cm fluid collection in the subcutaneous fat anterior to the pelvis (4:65) Differential includes abscess, hematoma, seroma.. 3. Inflammatory changes in the subcutaneous fat anterior to the pelvis may be secondary to recent surgery.. 4. Low-attenuation bowel wall thickening is seen throughout the colon consistent with colitis. Differential diagnosis includes infectious and inflammatory etiologies.. 5. 2.6 cm cystic structure in the anterior left hemipelvis 14 Hounsfield units. This most likely represents left ovarian cyst if the ovaries were not resected with the uterus. Differential includes small abscess, hematoma, or seroma. 6. Inflammatory changes in the subcutaneous fat anteriorly in the abdomen consistent with recent surgery. 7. 8 mm low-attenuation nodule in the liver 45 Hounsfield units. For low risk patients, recommend follow up CT or MRI in 6 months. For average risk patients, recommend multiphasic MRI in 6 months. For high risk patients, recommend multiphasic MRI and consider biopsy (core preferred). THIS REPORT CONTAINS FINDINGS THAT MAY BE CRITICAL TO PATIENT CARE. The findings were verbally communicated via telephone conference with KENNA APPLE at 5:29 PM EST on 03/28/2018. The findings were acknowledged and understood. Dictated and Authenticated by: Phuc Tolbert MD. Ordering:GILA Calvert MD
[2018-03-28 18:11] VITALS: BP 130/72; PULSE 85; RESP 18; O2SAT 95
[2018-03-28] MEDS: MORPHine 10 MG/ML VIAL 4 MG IVP (18:22)
[2018-03-28] MEDS: Ciprofloxacin 500 MG TAB PO (18:41)
[2018-03-28] MEDS: metroNIDAZOLE 500 MG TAB PO (18:41)
[2018-03-28 18:56] VITALS: BP 130/72; PULSE 85; RESP 18; TEMP 37; O2SAT 95
== END 2018-03-28 18:51 | disposition home or self-care (01) ==
PROVIDERS: Emergency Provider Student in an Organized Health Care Education/Training Program; PCP Family Medicine
DX: K52.9 Noninfective gastroenteritis and colitis, unspecified (principal); K76.89 Other specified diseases of liver; R10.2 Pelvic and perineal pain
CPT/HCPCS: 36415; 80053; 83690; 96361; 96374; 96375; 99285; 74177; 81003; 81015; 85025; 87086; 99284; J1885; J2270; J3490

== ENCOUNTER 2020-12-22 14:50 | Emergency (ER) | payer MEDICAID, SELFPAY ==
[2020-12-22 14:55] VITALS: BP 135/70; PULSE 84; RESP 18; TEMP 36.4; O2SAT 97
--- NOTE | 2020-12-22 15:21 | ED.GENADUL_ITS ---
Discharge Plan Disposition Patient Disposition: HOME Condition: Stable Discharge Details Clinical Impression: Cat bite, Cellulitis of face Primary Care Provider: Jose Diehl ED Provider: Joe Coyle Home Meds and New Rx's Prescriptions: New amoxicillin-pot clavulanate [Augmentin] 875-125 mg tablet 1 tab PO BID Qty: 20 RF: 0 ibuprofen 800 mg tablet 800 mg PO TID Qty: 14 RF: 0 Continued ibuprofen 800 mg tablet 800 mg PO QID PRN (Reason: pain) Qty: 30 RF: 1 acetaminophen [Mapap Extra Strength] 500 mg Tablet 500 mg PO Q4H PRN PRNQty: 30 RF: 0 Discharge Instructions Instructions: Cellulitis (ED), Animal Bite (ED) Additional Instructions: Augmentin and ibuprofen as directed. Warm soaks and/or compresses every 2 hours for 20 minutes. Please watch for new or worsening symptoms and return to the ER for any concerns. I would like you to contact your primary care provider tomorrow to discuss your ER visit need for outpatient wound reevaluation in the next 2-3 days. Medical Decision Making <BISI Landry - Last Filed: 12/22/20 17:30> Patient is a pleasant 50 year old female presenting today with c/c of cat bites and scratches to face. She reports that 2 days ago she tried to break up her cats fighting and suffered multiple wounds, mostly to right lower lid and nose. She denies visual changes. No fevers/chills. No GEE. States tetanus is UTD. On exam, patient has signficant erythema and swelling to lower lid and face. This spreads across the nose. Puncture to right nares which patient reports goes through and through. I did not visualize this on internal exam of nares. No focal area of swelling/fluctuance. No crepitus. concerned for periorbital cellulitis. No evidence to suggest [employer] infection. I do not appreciate evidence of necrotizing fasciitis. She does not appear systemically ill. Will obtain CT to look for any complications, abscess or other. Will begin on IV abx. Will obtain baseline labs. At the end of my shift, care transition to Joe Coyle PA-C with labs and imaging pending. <BISI Moore - Last Filed: 12/22/20 18:26> This is a 50-year-old female who I assumed care of from my colleague BISI Boyd, please see her initial HPI and examination. In short patient presents with facial cellulitis status post cat bite and scratch. IV antibiotics given. Aw aiting laboratory values and CT imaging. Laboratory values reveal minimal nonspecific leukocytosis of 11.17, absolute neutrophils 8.47, lactate normal at 1.3, electrolytes unremarkable, creatinine 1.0 with a GFR of 58.93. CT imaging per radiology reveals no evidence of osseous injury. There is mild soft tissue swelling and stranding of the lateral right periorbital soft tissues. Discussed laboratories and CT imaging with patient. Patient appears nontoxic, full range of motion of her eyes, no evidence of entrapment. Tissue appears indurated, erythematous but no obvious abscess or fluctuance. This would coincide with the CT imaging. Will provide prescription for Augmentin and ibuprofen, strict discharge and return precautions provided, and discussed the importance of primary care follow-up in the next 2-3 days. We discussed the importance of warm soaks and/or compresses as well. No additional questions or concerns, patient comfortable discharge. Medical Records Medical records reviewed: Yes I reviewed the patient's medical records. Imaging Data Radiologic Study: Attestation: I personally reviewed and interpreted this imaging study as follows: Imaging: CT Scan Radiologist's impression: PROCEDURE INFORMATION: Exam: CT Maxillofacial With Contrast Exam date and time: 12/22/2020 3:54 PM Age: 50 years old Clinical indication: Other: Cat bite, through nose and near right eye TECHNIQUE: Imaging protocol: Computed tomography images of the face with intravenous contrast. Radiation optimization: All CT scans at this facility use at least one of these dose optimization techniques: automated exposure control; mA and/or kV adjustment per patient size (includes targeted exams where dose is matched to clinical indication); or iterative reconstruction. Contrast material: OMNIPAQUE; Contrast volume: 100 ml; Contrast route: INTRAVENOUS (IV); COMPARISON: No relevant prior studies available. FINDINGS: Orbital cavity: Orbits are normal. Globes are unremarkable. Bones/joints: No acute fracture. Paranasal sinuses: Of the right maxillary sinus. Otherwise the paranasal sinuses are unremarkable. Soft tissues: IMPRESSION: No evidence of acute osseous injury. Mild soft tissue swelling and stranding of the lateral right periorbital soft tissues. Thank you for allowing us to participate in the care of your patient. Lab Data Lab results reviewed: Yes I reviewed the patient's lab results. Labs: Laboratory Tests Range/Units 12/22/20 12/22/20 12/22/20 16:33 16:33 16:33 WBC (4.4-10.8) 10^3/uL 11.17 H RBC (3.93-5.22) 10^6/uL 4.62 Hgb (11.2-15.7) g/dL 13.5 Hct (36.0-46.0) % 42.2 MCV (80-95) fL 91.3 MCH (27.0-33.0) pg 29.2 MCHC (32.0-36.0) % 32.0 RDW (11.7-14.6) % 13.1 Plt Count (130-400) 10^3/uL 317 MPV (8.0-11.0) fL 9.3 Immature Gran % 0.4 Neutrophils % 75.8 Lymphocytes % 16.6 Monocytes % 6.4 Eosinophils % 0.4 Basophils % 0.4 Nucleated RBC % % 0 Absolute Neutrophils (1.2-6.7) 10^3/uL 8.47 H Absolute Lymphocytes (1.2-3.4) 10^3/uL 1.85 Absolute Monocytes (0.1-0.8) 10^3/uL 0.71 Absolute Eosinophils (0.0-0.7) 10^3/uL 0.04 Absolute Basophils (0.0-0.2) 10^3/uL 0.04 VBG Lactate (0.6-1.4) mmol/L 1.3 Sodium (136-145) mmol/L 136 Potassium (3.5-5.1) mmol/L 4.0 Chloride (98-107) mmol/L 100 Carbon Dioxide (21.0-32.0) mmol/L 31.4 Anion Gap (3-11) mmol/L 4.6 BUN (7-18) mg/dL 5 L Creatinine (0.55-1.02) mg/dL 1.0 Estimated GFR/1.73 m2 (mL/min/1.73m2) 58.93 Glucose (74-106) mg/dL 81 Calcium (8.5-10.1) mg/dL 8.5 Magnesium (1.8-2.4) mg/dL 2.0 Total Bilirubin (0.2-1.0) mg/dL 0.5 AST (15-37) U/L 8 L ALT (14-59) U/L 12 L Alkaline Phosphatase (46-116) U/L 60 Total Protein (6.4-8.2) g/dL 7.7 Albumin (3.4-5.0) g/dL 3.6 HPI <BISI Landry - Last Filed: 12/22/20 17:30> General Mode of arrival: ambulatory . Date/Time Provider Initiated Documentation: 12/22/20 15:21 . Limitations to Documentation: no limitations . Information obtained by: patient and RN notes reviewed . History of Present Illness 50 year old F presents to the emergency department with the chief complaint of swelling, pain, redness right side of face/nose after cat bite, described as severe, with intensity rated at 9. Quality is described as aching, and is localized to the head. Patient reports no radiation. Patient started experiencing this day(s) and it has been constant. No relieving factors improve symptom(s), No exacerbating factors reported . Patient notes denies diaphoresis, fever/chills, headaches, loss of appetite and nausea/vomiting. Patient did receive the following treatments prior to arrival, none Related Data Home Medications Medication Instructions Recorded Confirmed acetaminophen [Mapap Extra 500 mg PO Q4H PRN PRN #30 tab 03/17/18 12/22/20 Strength] ibuprofen 800 mg tablet 800 mg PO QID PRN #30 tab 03/25/18 12/22/20 amoxicillin-pot clavulanate 1 tab PO BID #20 tab 12/22/20 [Augmentin] ibuprofen 800 mg PO TID #14 tab 12/22/20 Previous Rx's Medication Instructions Recorded acetaminophen [Mapap Extra 500 mg PO Q4H PRN PRN #30 tab 03/17/18 Strength] ibuprofen 800 mg tablet 800 mg PO QID PRN #30 tab 03/25/18 amoxicillin-pot clavulanate 1 tab PO BID #20 tab 12/22/20 [Augmentin] ibuprofen 800 mg PO TID #14 tab 12/22/20 Allergies Allergy/AdvReac Type Severity Reaction Status Date / Time No Known Allergies Allergy Unverified 12/22/20 14:59 General Stated Complaint: AnimalBite PAU: 4 Review of Systems <BISI Landry - Last Filed: 12/22/20 17:30> Constitutional Constitutional: Reports as per HPI, Denies chills, Denies fever(s) and Denies headache(s) Eyes Eyes: Reports as per HPI, Denies eye discharge and Denies irritation ENT Ears, Nose, Mouth, and Throat: Reports as per HPI and Denies headache(s) Cardiovascular Cardiovascular: Reports as per HPI and Denies dyspnea Respiratory Respiratory: Reports as per HPI and Denies dyspnea Gastrointestinal Gastrointestinal: Reports as per HPI Integumentary/Breasts Skin/Breast: Reports as per HPI, Reports erythema, Reports skin swelling and Reports sores Neurologic Neurologic: Reports as per HPI and Denies headache(s) PFSH <BISI Landry - Last Filed: 12/22/20 17:30> Medical History Atypical squamous cells of undetermined significance (ASCUS) on Papanicolaou smear of cervix (11/21/14) Depression Dysmenorrhea 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) Menorrhagia Pre-diabetes Surgical History section 2003 H/O abdominal hysterectomy Ligation of fallopian tube 2003 Tonsillectomy and adenoidectomy 1981 Family History Mother , COPD/CHF CHF (congestive heart failure) COPD (chronic obstructive pulmonary disease) Father Essential hypertension Sister PCOS (polycystic ovarian syndrome) Ovarian cancer Grandfather Essential hypertension Grandfather COPD (chronic obstructive pulmonary disease) Grandmother Cervical cancer Social History (Updated 12/02/17 @ 13:13 by Audrey Montenegro RN) Smoking/Tobacco Use Status: Current every day Tobacco Type: cigarettes Smoking risk assessment performed?: Yes Alcohol Intake: former Drug use: Occasionally Substance use type: marijuana Do you feel safe at home: Yes Do you feel safe in your relationship?: Yes History History 2 Para Hx # Term Pregnancies Multiple births Hx # Pregnancies Ectopic pregnancies AB induced Hx Number of Living Children AB spontaneous Exam <BISI Landry - Last Filed: 12/22/20 17:30> Const General: cooperative, not healthy appearing, comfortable, no acute distress, well developed and well groomed Nutritional Appearance: average body habitus and well nourished Orientation: alert and awake [facility] Head: normal to inspection, normocephalic and atraumatic Ears: hearing grossly normal bilaterally, external ears normal and TM's normal bilaterally General nose exam: external nose not normal and nares normal Mouth: oral mucosae normal, lip normal, tongue normal, oropharynx normal and moist mucous membranes Teeth and gingiva: dentition normal Throat: posterior oropharynx normal, tonsils normal and uvula midline Eyes Alignment and Position: alignment normal and position normal Eyelids: abnormal eyelids Conjunctivae: conjunctivae normal Pupils: PERRL and normal by confrontation EOM: EOM intact bilaterally Neck Neck: normal visual inspection, full ROM, no lymphadenopathy and no meningeal signs Resp Effort & Inspection: normal respiratory effort, able to speak in complete sentences and no respiratory distress Cardio Rate: regular rate Rhythm: regular rhythm Skin General skin exam: erythema Trauma: abrasion and puncture Neuro General: patient alert and patient awake Cognition: normal cognition Speech: speech normal Gait: normal gait Psych Appearance: grossly normal and well kempt Mental Status: mental status grossly normal Speech and Movement: speech and movement normal Course <BISI Landry Last Filed: 12/22/20 17:30> Vital Signs Vital signs: Vital Signs Temperature 36.4 C L 12/22/20 14:55 Pulse 84 12/22/20 14:55 Respiratory Rate 18 12/22/20 14:55 Blood Pressure 135/70 12/22/20 14:55 Pulse Oximetry 97 12/22/20 14:55 Temperature 36.4 C L 12/22/20 14:55 Temperature Source Temporal Artery Scan 12/22/20 14:55 Pulse 84 12/22/20 14:55 Respiratory Rate 18 12/22/20 14:55 Respiratory Effort Non-Labored 12/22/20 15:00 Blood Pressure 135/70 12/22/20 14:55 Blood Pressure Position Sitting 12/22/20 14:55 Pulse Oximetry 97 12/22/20 14:55 Oxygen Delivery Method Room Air 12/22/20 14:55 Oxygen Flow Rate 0 12/22/20 14:55 Pain Level 9 12/22/20 14:55 Sign Out <BISI Landry Filed: 12/22/20 17:30> Sign Out Data: Sign Out Comment: Care transition to Zack Coyle PA-C, with imaging and labs pending. Concern for facial cellulitis, particularly around the right eye after cat bite. Last updated by Sarah Boyd PA at 12/22/20 16:30
--- NOTE | 2020-12-22 15:45 | DI.CT_ITS ---
Exam(s) CT FACIAL W EXAM: CT FACIAL W CLINICAL HISTORY: cat bit, through and through nose, right eye TECHNIQUE: COMPARISON: No exams were available for comparison FINDINGS: CT of the maxillofacial region was performed with intravenous infusion of 100 cc of Omnipaque 350. T here is mild soft tissue edema in the right periorbital region. The retro bulbar fat appears normal. No abnormality of globes, optic nerves, or extraocular musculature either side. No bony abnormalit y seen. Paranasal sinuses are clear. Visualized brain is. Retropharyngeal soft tissues appear inta ct. IMPRESSION: Negative maxillofacial CT. RADIATION DOSE DELIVERED: 727.77mGy.cm Total DLP 32.54mGy CTDIvol RADIATION OPTIMIZATION: All CT scans at this facility use at least one of these dose optimization te chniques: automated exposure control; mA and/or kV adjustment per patient size (includes targeted exa ms where dose is matched to clinical indication); or iterative reconstruction.
[2020-12-22] MEDS: Omnipaque 350 MG/ML 100 ML BTL IJ (16:24)
[2020-12-22] MEDS: Normal Saline - Diluent 50 ML VIAL IV (16:25)
[2020-12-22] MEDS: Normal Saline Flush 10 ML SYR IVP ×2 (16:25→16:50)
[2020-12-22] MEDS: Normal Saline 1,000 ML 1000 ML IV (16:46)
[2020-12-22] MEDS: ACETAMINOPHEN 1,000 MG/100 ML BTL 1000 MG (16:49)
[2020-12-22] MEDS: AMPICILLIN/SULBACTAM 3 GM in Normal Saline 100 ML IVPB (16:49)
[2020-12-22 16:51] LABS: Lactate 1.3 mmol/L (0.6-1.4)
[2020-12-22 16:55] LABS: Abs Immature Grans 0.04 10^3/uL (0.0-0.06); Absolute Basophil Count 0.04 10^3/uL (0.0-0.2); Absolute Eosinophil Count 0.04 10^3/uL (0.0-0.7); Absolute Lymphocyte Count 1.85 10^3/uL (1.2-3.4); Absolute Monocyte Count 0.71 10^3/uL (0.1-0.8); Basophils % 0.4; Eosinophils % 0.4; HCT 42.2 % (36.0-46.0); HGB 13.5 g/dL (11.2-15.7); Immature Grans % 0.4; Lymphocytes % 16.6; MCH 29.2 pg (27.0-33.0); MCV 91.3 fL (80-95); MPV 9.3 fL (8.0-11.0); Monocytes % 6.4; Neutrophils % 75.8; Nucleated RBC 0 %; Platelet Count 317 10^3/uL (130-400); RBC 4.62 10^6/uL (3.93-5.22); RDW 13.1 % (11.7-14.6); RDW-SD 44.3 fL; WBC 11.17 10^3/uL (4.4-10.8)
[2020-12-22 17:00] LABS: Absolute Neutrophil Count 8.47 10^3/uL (1.2-6.7)
[2020-12-22 17:13] LABS: ALT 12 U/L (14-59); AST 8 U/L (15-37); Albumin 3.6 g/dL (3.4-5.0); Alkaline Phosphatase 60 U/L (46-116); Anion Gap 4.6 mmol/L (3-11); BUN 5 mg/dL (7-18); Bilirubin, Total 0.5 mg/dL (0.2-1.0); CO2 31.4 mmol/L (21.0-32.0); Calcium 8.5 mg/dL (8.5-10.1); Chloride 100 mmol/L (98-107); Estimated GFR 58.93 (mL/min/1.73m2); Glucose 81 mg/dL (74-106); Sodium 136 mmol/L (136-145); Total Protein 7.7 g/dL (6.4-8.2)
--- NOTE | 2020-12-22 18:06 | DI.VRAD_ITS ---
PROCEDURE INFORMATION: Exam: CT Maxillofacial With Contrast Exam date and time: 12/22/2020 3:54 PM Age: 50 years old Clinical indication: Other: Cat bite, through nose and near right eye TECHNIQUE: Imaging protocol: Computed tomography images of the face with intravenous contrast. Radiation optimization: All CT scans at this facility use at least one of these dose optimization techniques: automated exposure control; mA and/or kV adjustment per patient size (includes targeted exams where dose is matched to clinical indication); or iterative reconstruction. Contrast material: OMNIPAQUE; Contrast volume: 100 ml; Contrast route: INTRAVENOUS (IV); COMPARISON: No relevant prior studies available. FINDINGS: Orbital cavity: Orbits are normal. Globes are unremarkable. Bones/joints: No acute fracture. Paranasal sinuses: Of the right maxillary sinus. Otherwise the paranasal sinuses are unremarkable. Soft tissues: IMPRESSION: No evidence of acute osseous injury. Mild soft tissue swelling and stranding of the lateral right periorbital soft tissues. Dictated and Authenticated by: Theodore Felipe MD. Ordering:WENDY Smith MD
--- NOTE | 2020-12-23 09:43 | NUR.NOTE ---
Nursing Note: Animal bite report faxed to [facility] Clerk Sund 12/22/20. Spoke with Gio Mi Rochert health officer, he is aware. Vilma Daniel
== END 2020-12-22 18:44 | disposition home or self-care (01) ==
PROVIDERS: Physician Assistant; Emergency Provider Physician Assistant; PCP Family Medicine
DX: L03.211 Cellulitis of face (principal); S01.85XA Open bite of other part of head, initial encounter; W55.01XA Bitten by cat, initial encounter
CPT/HCPCS: 36415; 80053; 96361; 96365; 99285; 70487; 83605; 83735; 85025; 99284; J0131; J0295; J3490

== ENCOUNTER 2021-08-18 15:52 | Emergency (ER) | payer MEDICAID, SELFPAY ==
--- NOTE | 2021-08-18 16:15 | DI.RAD_ITS ---
Exam(s) XR SHOULDER LT COMPLETE 2+V EXAM: XR SHOULDER LT COMPLETE 2+V CLINICAL HISTORY: chronic left shoulder pain. TECHNIQUE: 2D digital imaging was performed. Three views. COMPARISON: No exams were available for comparison FINDINGS: BONES: No acute fracture is present. No bony destructive lesion is seen. There is minimal spurring a t the tip of the acromion. A degenerative subchondral cyst is seen at the greater tuberosity. There minimal degenerative changes at the glenoid. JOINTS: No dislocation present. SOFT TISSUE: Normal. IMPRESSION: Minimal degenerative changes. No acute abnormality. DATA REPOSITORY: RADIATION DOSE DELIVERED:
--- NOTE | 2021-08-18 16:25 | DI.RAD_ITS ---
Exam(s) XR CERVICAL SP RHODES TRAUMA 2-3V EXAM: XR CERVICAL SP RHODES TRAUMA 2-3V CLINICAL HISTORY: symptoms of cervical radiculopathy, no trauma. TECHNIQUE: 2D digital imaging was performed. COMPARISON: No exams were available for comparison FINDINGS: There is no evidence of fracture. There are degenerative changes of the discs and facet joints. The re is some straightening of the normal cervical lordosis secondary to the degenerative changes. Ther e is no prevertebral soft tissue swelling. IMPRESSION: Degenerative changes. No acute abnormality. DATA REPOSITORY: RADIATION DOSE DELIVERED:
--- NOTE | 2021-08-18 16:28 | ED.GENADUL_ITS ---
Discharge Plan Disposition Patient Disposition: HOME Condition: Improving Discharge Details Clinical Impression: Cervical radiculopathy, Left shoulder pain Primary Care Provider: Jose Diehl ED Provider: Paddy Johnson Home Meds and New Rx's Prescriptions: New lidocaine [Lidoderm] 5 % adhesive patch,medicated 1 patch topical DAILY PRN (Reason: pain) Qty: 7 0RF Rx Instructions: leave on most painful area for up to 12 hrs cyclobenzaprine 5 mg tablet 5 mg PO DAILY PRN (Reason: muscle spasm) Qty: 10 0RF No Action acetaminophen [Mapap Extra Strength] 500 mg Tablet 500 mg PO Q4H PRN PRNQty: 30 0RF Discharge Instructions Instructions: Cervical Radiculopathy (ED), Shoulder Pain (ED) Additional Instructions: Please follow-up with orthopedic surgery as scheduled. Please return to the emergency department for any worsening symptoms specifically worsening weakness numbness pain in the ability or other abnormal symptoms. Medical Decision Making 51-year-old female presents with chronic left shoulder pain, atraumatic in nature, intermittent left arm numbness and pain as well as intermittent right upper extremity numbness, all worse with movement especially lifting heavy objects, endorses family history of degenerative spine disease, remote traumas in the past, no new trauma, no spinal surgery, patient has normal speech, full strength 5 out of 5 upper and lower extremities, no ataxia, cranial nerves intact, no midline spinal tenderness crepitus deformity or step-off, does have range of motion intact in bilateral upper extremities, however reproducible pain with abduction of left shoulder. High clinical suspicion for cervical radiculopathy versus rotator cuff injury to left shoulder versus meniscal injury and left shoulder, no clinical signs of stroke at this time, low suspicion for fracture or dislocation of extremity. Screening cervical x-ray as well as left shoulder x-ray, analgesia anti-inflammatory. Will likely be given orthopedic referral. Strict return precautions and discharged home. Will be given light duty work note for this week. 17: 51 patient feeling somewhat better after medications. X-ray showing age- related degenerative changes cervical spine. No fracture or subluxation. X-ray shoulder negative. Likely component of cervical radiculopathy as well as possible rotator cuff injury. Will be given orthopedic follow-up. Home care instructions and return precautions. HPI General Date/Time Provider Initiated Documentation: 08/18/21 16:25 . HPI Narrative: 51-year-old female presents with atraumatic left shoulder discomfort for the past several weeks to months, intermittent numbness to bilateral upper extremities as well as pain worse after lifting objects, denies change in speech headache weakness, leg involvement or balance issues. Does have family history of degenerative spine disease. Has had remote accidents in the past however no new trauma, no history of spinal surgery. Patient requesting work note for light duty Related Data Home Medications Medication Instructions Recorded Confirmed acetaminophen 500 mg tablet (Mapap 500 mg PO Q4H PRN PRN #30 tabs 03/17/18 08/18/21 Extra Strength) cyclobenzaprine 5 mg tablet 5 mg PO DAILY PRN muscle spasm #10 08/18/21 tabs lidocaine 5 % topical patch 1 patch topical DAILY PRN pain #7 08/18/21 (Lidoderm) ea Previous Rx's Medication Instructions Recorded acetaminophen 500 mg tablet (Mapap 500 mg PO Q4H PRN PRN #30 tabs 03/17/18 Extra Strength) cyclobenzaprine 5 mg tablet 5 mg PO DAILY PRN muscle spasm #10 08/18/21 tabs lidocaine 5 % topical patch 1 patch topical DAILY PRN pain #7 08/18/21 (Lidoderm) ea Allergies Allergy/AdvReac Type Severity Reaction Status Date / Time No Known Allergies Allergy Unverified 08/18/21 16:04 General Stated Complaint: Orthopedic PAU: 4 Review of Systems Narrative: Review of Systems Constitutional: negative Eyes: negative ENT: negative Cardiovascular: negative Respiratory: negative Gastrointestinal: negative : negative Musculoskeletal: Left shoulder pain Skin: negative Neurologic: Left arm pain as well as numbness, right arm numbness Psych: negative PFSH All Active Problems (Updated 08/18/21 @ 17:52 by Paddy Johnson MD) Cat bite (Acute) Cellulitis of face (Acute) Cervical radiculopathy (Acute) Left shoulder pain (Acute) Dysmenorrhea (Acute) 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) Atypical squamous cells of undetermined significance (ASCUS) on Papanicolaou smear of cervix (Acute 11/21/14) Medical History Atypical squamous cells of undetermined significance (ASCUS) on Papanicolaou smear of cervix (11/21/14) Depression Dysmenorrhea 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) Menorrhagia Pre-diabetes Surgical History section 1995, 2003 H/O abdominal hysterectomy Ligation of fallopian tube 2003 Tonsillectomy and adenoidectomy 1981 Family History Mother , COPD/CHF CHF (congestive heart failure) COPD (chronic obstructive pulmonary disease) Father Essential hypertension Sister PCOS (polycystic ovarian syndrome) Ovarian cancer Grandfather Essential hypertension Grandfather COPD (chronic obstructive pulmonary disease) Grandmother Cervical cancer Social History (Updated 12/02/17 @ 13:13 by Audrey Montenegro RN) Smoking/Tobacco Use Status: Current every day Tobacco Type: cigarettes Smoking risk assessment performed?: Yes Alcohol Intake: former Drug use: Occasionally Substance use type: marijuana Do you feel safe at home: Yes Do you feel safe in your relationship?: Yes History History 2 Para Hx # Term Pregnancies Multiple births Hx # Pregnancies Ectopic pregnancies AB induced Hx Number of Living Children AB spontaneous Exam Narrative Exam Narrative: Physical Examination General: alert, awake, cooperative, resting comfortably, no acute distress HEENT: normocephalic, atraumatic; PERRL, EOM intact, conjunctiva normal; no nasal discharge; moist mucous membranes, oral and pharyngeal mucosa normal, tolerating secretions Neck: supple, trachea midline; full ROM Chest: normal to inspection Respiratory: normal respiratory effort, speaking in full sentences, clear to auscultation, no wheezing, rales or rhonchi Cardiac: regular rate, regular rhythm, S1S2 intact, no murmurs rubs or gallops GI: abdomen soft, non-tender, non-distended; no palpable mass or hepatosplenomegaly Back: No midline spinal tenderness Skin: no lesions, rashes or trauma appreciated Neuro: AAOx3, normal speech, moving all extremities; 5 out of 5 strength upper and lower extremities bilaterally, normal speech, cranial nerves II through XII intact, no ataxia Extremities: Full range of motion right upper and left upper extremity however reproducible pain with abduction at shoulder, no palpable deformity or crepitus Psych: Appropriate mood and affect Course Vital Signs Vital signs: Temperature Source Skin 08/18/21 15:59 Respiratory Effort 08/18/21 16:05 Pain Level 7 08/18/21 15:59 Comment 08/18/21 15:59
[2021-08-18] MEDS: Lidocaine 5% Patch 1 PATCH TP (16:37)
[2021-08-18] MEDS: Cyclobenzaprine 10 MG TAB PO (16:37)
[2021-08-18] MEDS: Ketorolac 15 MG/ML VIAL IM (16:37)
--- NOTE | 2021-08-18 17:27 | DI.VRAD_ITS ---
PROCEDURE INFORMATION: Exam: XR Left Shoulder Exam date and time: 08/18/2021 5:05 PM Age: 51 years old Clinical indication: Other: Chronic left shoulder pain TECHNIQUE: Imaging protocol: XR Left shoulder. Views: 2 or more views. COMPARISON: No relevant images were readily available for comparison purposes. FINDINGS: Bones/joints: No acute fracture or dislocation. Soft tissues: Unremarkable. IMPRESSION: No acute fracture, dislocation, or significant degenerative changes to explain the patient's pain. Dictated and Authenticated by: Masood Swanson MD. Ordering:ADEBAYO Thomason MD
--- NOTE | 2021-08-18 17:28 | DI.VRAD_ITS ---
PROCEDURE INFORMATION: Exam: XR Cervical Spine Exam date and time: 08/18/2021 5:10 PM Age: 51 years old Clinical indication: Other: Symptoms of cervical radiculopathy, no trauma TECHNIQUE: Imaging protocol: XR of the cervical spine. Views: 2 or 3 views. COMPARISON: CR XR SHOULDER LT COMPLETE 2+V 08/18/2021 5:05 PM FINDINGS: Bones/joints: Cervical vertebral body heights are well maintained. Alignment is well preserved without significant listhesis. Moderate endplate degenerative changes. Soft tissues: Unremarkable. Lungs: Unremarkable lung apices. IMPRESSION: Degenerative changes of the cervical spine without acute findings. Dictated and Authenticated by: Masood Swanson MD. Ordering:ADEBAYO Thomason MD
== END 2021-08-18 18:04 | disposition home or self-care (01) ==
PROVIDERS: Emergency Provider Emergency Medicine; PCP Family Medicine
DX: M54.12 Radiculopathy, cervical region (principal); M25.512 Pain in left shoulder
CPT/HCPCS: 96372; 99284; 72040; 73030; 99283; J1885

== ENCOUNTER 2021-11-05 16:44 | Outpatient (REF) | payer MEDICAID, SELFPAY ==
[2021-11-05 17:07] LABS: Anion Gap 14.1 mmol/L (3-11); BUN 20 mg/dL (7-18); CO2 22.9 mmol/L (21.0-32.0); CREATININE 0.8 mg/dL (0.55-1.02); Calcium 8.9 mg/dL (8.5-10.1); Calculated LDL 100 mg/dL (<100); Chloride 104 mmol/L (98-107); Cholesterol 175 mg/dL (<200); Ferritin 95 ng/mL (8-252); Glucose 95 mg/dL (74-106); HDL Cholesterol 62 mg/dL (40-60); Potassium 4.1 mmol/L (3.5-5.1); Sodium 141 mmol/L (136-145); TSH 3.71 uIU/mL (0.36-3.74); Triglyceride 66 mg/dL (<150)
[2021-11-05 17:09] LABS: Iron 52 ug/dL (50-170)
[2021-11-06 10:06] LABS: HIV-1/2 Ag & Ab Screen Negative (Negative)
[2021-11-06 10:20] LABS: Hepatitis C Ab w Rflx HCV PCR Negative (Negative)
== END 2021-11-05 16:45 | disposition home or self-care (01) ==
LOC: NCHCN 16:44
PROVIDERS: PCP Family Medicine; Visit Provider Physician Assistant
DX: E03.9 Hypothyroidism, unspecified (principal); Z11.4 Encounter for screening for human immunodeficiency virus [HIV]; Z11.59 Encounter for screening for other viral diseases; D64.9 Anemia, unspecified
CPT/HCPCS: 80048; 80061; 86803; 87389; 82728; 83540; 84443